=== PATIENT | male | born 1955 | race Caucasian/White ===

== ENCOUNTER → 2017-06-05 13:18 | Outpatient (CLI) | payer MEDICAID, SELFPAY ==
--- NOTE | 2017-06-05 13:36 | CT_ITS ---
EXAM: CT LUNG LOW DOSE WO CONTRAST COMPARISON: 05/28/2013 HISTORY: 62-year-old male with 88 pack-year smoking history asymptomatic for lung cancer ORDERING PHYSICIAN: Ruddy Lynn MD PATIENT AGE: 62 years TECHNIQUE: The exam was performed on a GE Light Speed [address] scanner using 2.96 mGy CTDI. A low dose helical CT CHEST was performed on a multi-detector scanner The LDCT was performed in a facility that meets the criteria for the screening program. Data regarding this exam was submitted to ACR which is an approved registry. The order for this exam indicates that it came as a result of a lung cancer screening counseling shard decision-making visit that included all the elements required of such a visit including smoking cessation. The radiologist interpreting this exam meets the [facility] criteria for the LDCT lung cancer screening program. The exam is reported using the Lung-RADS classification scale and reported to the ACR registry. NOTE: This study was performed for the specific purposes of lung cancer screening and is not an alternative to diagnostic chest CT. RADIATION DOSE: CTDI vol(CT dose Index-volume) = 2.96mG DLP (Dose Length Product) = 119.2 mGcm FINDINGS: There are severe centrilobular emphysematous changes with scattered areas of fibrosis. There are scattered stable calcified granulomas and a few stable subpleural nodules. There is a new somewhat irregular shaped 10 x 8 mm nodule in the posterior segment of the left upper lobe inferiorly not calcified. No effusions are evident. There is patchy density in the right middle lobe inferiorly may be due to an area of atelectasis or infiltrate. No other pertinent findings IMPRESSION: 1. Lung RADS Category: 4, suspicious. 10 x 8 mm somewhat ill-defined irregular nodule in the posterior segment left upper lobe inferiorly not readily apparent on the previous study. This is more prominent on the reformatted images. 2. Other findings: Severe centrilobular emphysema with pulmonary fibrosis and old granulomatous disease RECOMMENDATIONS: Regular CT chest without and with contrast
== END ==
PROVIDERS: Family Provider Family Medicine; PCP Family Medicine; Visit Provider Family Medicine
DX: Z12.2 Encounter for screening for malignant neoplasm of respiratory organs (principal); Z87.891 Personal history of nicotine dependence; Z72.0 Tobacco use

== ENCOUNTER → 2017-06-18 09:37 | Outpatient (CLI) | payer MEDICAID, SELFPAY ==
--- NOTE | 2017-06-18 09:41 | CT_ITS ---
CT chest wo/w con HISTORY: Emphysema, COPD, follow-up abnormal lung screening CT ITS.REASON: ABNORMAL CT LUNG SCREENING ORDERING PHYSICIAN: Js Lynn PATIENT AGE: 62 years TECHNIQUE: Axial images obtained without and with contrast. Sagittal and coronal reformatted images are also generated and reviewed. CONTRAST: 75ml Isovue 370 I.V. COMPARISON: 06/05/17 FINDINGS: No mediastinal or hilar mass or adenopathy. There are scattered small nodes in the mediastinum and right hilum with a right hilar lymph node measuring 1.9 x 1.5 cm. Normal heart size. No evidence pericardial effusion. No evidence of aortic aneurysm or dissection there is minimal ectasia of the proximal descending thoracic aorta at 3.4 cm. Moderate to severe edematous changes are present with bullous changes in the lung apices. Calcified granuloma is present in the right upper lobe and there are are postsurgical changes in the right apex. There are scattered subpleural nodular opacities and small fissural nodules which are unchanged. The previously noted 7 x 5 mm opacity in the left upper lobe posteriorly is once again noted but does appears somewhat less apparent on the post enhanced images measuring approximately 5 x 3 mm. Recommend 6 month follow-up to confirm short-term stability. No other significant anomalies are evident. Upper abdominal images are unremarkable. No acute bony findings. IMPRESSION: 1. Centrilobular emphysema with bullous changes and's scattered subpleural and fissural small nodular opacities which appear stable. 2. The new nodule within the left upper lobe is somewhat less apparent on today's images compared to the screening CT and could very well be due to an area of parenchymal fibrosis or postinflammatory nodule. Six-month CT follow-up is recommended. This can be performed without contrast but should be a regular chest CT and not a screening CT
== END ==
PROVIDERS: Family Provider Family Medicine; PCP Family Medicine; Visit Provider Psychiatry & Neurology Psychiatry
DX: R91.8 Other nonspecific abnormal finding of lung field (principal)
CPT/HCPCS: 71270; Q9967

== ENCOUNTER → 2017-12-09 12:25 | Outpatient (CLI) | payer MEDICAID, SELFPAY ==
--- NOTE | 2017-12-09 | XR_ITS ---
XR chest 2V HISTORY: ITS.REASON: BRONCHITIS ORDERING PHYSICIAN: Ruddy Lynn MD PATIENT AGE: 62 years COMPARISON: 08/18/2015 FINDINGS: There is been a prior median sternotomy with mitral valve replacement. Normal heart size. Surgical clips are present in the right apex. There is a granuloma in the right upper lobe. There is patchy density in the right mid and upper lungs on similar to the previous exam and may be due to an area of fibrosis. No evidence of pneumothorax. There is blunting of the right CP angle. Left lung is clear. There is hyperinflation with attenuation of the peripheral pulmonary vessels consistent with COPD. There has been prior cervical fusion inferiorly. IMPRESSION: COPD, postsurgical changes. No change with no acute finding
== END ==
PROVIDERS: PCP Family Medicine; Visit Provider Family Medicine
DX: J40 Bronchitis, not specified as acute or chronic (principal)
CPT/HCPCS: 71046

== ENCOUNTER → 2019-04-07 12:53 | Outpatient (CLI) | payer OTHER, SELFPAY ==
--- NOTE | 2019-04-07 12:55 | CT_ITS ---
PROCEDURE: CT LUNG SCREENING CLINICAL INDICATION: CURRENT TOBACCO USE Sixty pack-year smoking history, asymptomatic for lung cancer COMPARISON: CHESTWW CT chest wo/w con from 06/18/2017 TECHNIQUE: The exam was performed on a GE Light Speed [address] scanner using 2.90 mGy CTDI. A low dose helical CT CHEST was performed on a multi-detector scanner. All CT scans at the facility use one or more dose reduction, viz: automated exposure control, ma/kV adjustment per patient size (including targeted exams where dose is matched to indication, i.e. head), or iterative reconstruction technique. The LDCT was performed in a facility that meets the criteria for the screening program. Data regarding this exam was submitted to ACR which is an approved registry. The order for this exam indicates that it came as a result of a lung cancer screening counseling shard decision-making visit that included all the elements required of such a visit including smoking cessation. The radiologist interpreting this exam meets the CMS criteria for the LDCT lung cancer screening program. The exam is reported using the Lung-RADS classification scale and reported to the ACR registry. NOTE: This study was performed for the specific purposes of lung cancer screening and is not an alternative to diagnostic chest CT. RADIATION DOSE: CTDI vol(CT dose Index-volume) = 2.90mG DLP (Dose Length Product) = 109.94 mGcm FINDINGS: Panlobular emphysematous changes are present. Stable 5 mm nodular opacity right upper lobe medially image 52. Stable fissural nodule on the right at 4 mm. Scattered calcified granulomas. 4 mm subpleural opacity right lower lobe posteriorly unchanged. Scattered areas of scarring. No suspicious nodules evident. There are postsurgical changes in the right apex. OTHER FINDINGS: Prior median sternotomy. Prior mitral valve replacement IMPRESSION: Lung rads category 2 benign. Recommend 12 month LDCT follow-up. Other findings include centrilobular emphysema Dictated by: Bonifacio Alarcon MD 04/07/2019 18:10 Electronically signed by Bonifacio Alarcon MD in [place] 04/14/2019 10:39
== END ==
PROVIDERS: PCP Family Medicine; Visit Provider Family Medicine
DX: Z87.891 Personal history of nicotine dependence (principal); Z12.2 Encounter for screening for malignant neoplasm of respiratory organs

== ENCOUNTER → 2019-09-07 08:07 | Outpatient (CLI) | payer OTHER, SELFPAY ==
[2019-09-07 08:37] LABS: Basophils # 0.1 K/mm3 (0-0.2); Basophils % 0.8 % (0.1-2.0); Eosinophils # 0.2 K/mm3 (0.0-0.4); Eosinophils % 1.9 % (0.1-12.0); Hematocrit 45.8 % (42.0-52.0); Hemoglobin 14.5 g/dL (14.1-18.0); Lymphocytes # 1.6 K/mm3 (0.7-4.5); Lymphocytes % 19.1 % (10-50); Mean Corpuscular HGB Conc 31.8 g/dL (31.8-35.4); Mean Corpuscular Hemoglobin 29.1 pg (27.0-31.2); Mean Corpuscular Volume 91.7 fl (80-94); Monocytes # 0.7 K/mm3 (0.1-1.0); Monocytes % 8.2 % (1.7-9.3); Platelet Count 226 K/mm3 (142-424); Red Blood Count 4.99 M/mm3 (4.60-6.20); Red Cell Distribution Width 15.1 % (11.5-17.5); White Blood Count 8.5 K/mm3 (4.8-10.8)
[2019-09-07 10:21] LABS: Anion Gap 7.2 mEq/L (5-15); Blood Urea Nitrogen 20 mg/dl (9-20); Calcium 9.7 mg/dl (8.4-10.2); Carbon Dioxide 28 mmol/L (22.0-30.0); Chloride 105 mmol/L (98-107); Estimated Glomerular Filt Rate 86 ml/min (>60); GFR (African American) 103 ML/MIN (>60); Glucose 118 mg/dl (74-100); Potassium 4.2 mmoL/L (3.5-5.1); Sodium 136 mmol/L (136-145)
[2019-09-29 16:03] LABS: Covid-19 Nasal PCR Sendout Lex NOT DETECTED
== END ==
PROVIDERS: Visit Provider Surgery
DX: Z03.818 Encounter for observation for suspected exposure to other biological agents ruled out (principal); K40.90 Unilateral inguinal hernia, without obstruction or gangrene, not specified as recurrent
CPT/HCPCS: 36415; 80048; 85025; U0004

== ENCOUNTER 2019-09-09 06:12 | Day surgery (SDC) | payer OTHER, SELFPAY ==
--- NOTE | 2019-09-04 09:53 | SUR.PREOP ---
09/04/2019 @ 0954--PHONE CALL MADE TO PATIENT. PATIENT UNDERSTANDS THAT LAB WORK AND COVID TESTING NEEDS TO BE COMPLETED @ 0800 on 09/07/2019. PATIENT UNDERSTANDS IF LAB WORK AND COVID-19 TESTS ARE NOT COMPLETED BY 12PM ON THAT DATE, THE SURGERY SCHEDULED WILL BE CANCELLED AND RESCHEDULED FOR ANOTHER TIME.
[2019-09-08 10:44] VITALS: BMI 20.5
[2019-09-09] VITALS (15 sets, daily range): BP systolic 84–132; BP diastolic 54–75; PULSE 66–105; RESP 12–23; TEMP 36.1–43; O2SAT 93–99
--- NOTE | 2019-09-09 06:58 | P.PN_ITS ---
[facility] Anesthesia Checklist - Patient Identification Patient Identification: Arm Band, Verbal (Name & ) - Structural Data Admitted From: Home Planned Operative Procedure/s: bilat ing hernia Consent for Planned Operative Procedure(s) Verified: Yes Verified Documents: History and Physical - NPO Status Verified Time NPO: 00:00 - Additional verifications Patient : No Anesthesia Reactions: No Hx Blood Transfusions: No Blood Transfusion Reaction: No Cephalosporin Allergy: No Previous Colonoscopy: No - Cardiovascular Assessment Heart Sounds: S1 & S2 Pulse Strength: Baseline Pulse Rhythm: Regular Peripheral Edema: No - Airway Assessment C-Spine Mobility Assessed: Yes TMJ Mobility Assessed: Yes Dentition: Good Dentition - Neurological Assessment Level of Consciousness: Awake, Alert, Appropriate Hx Seizures: No Numbness or tingling in extremities: No - Anesthesia Plan Anesthesia Risk discussed: Yes Anesthesia Plan: Verified ASA Class: II Anesthesia Type: General [facility] History I have reviewed the patient's past medical history: Yes Medical History: Denies:: Cancer, Diabetes Mellitus Type 1, Diabetes Mellitus Type 2, Internal Pacemaker, MRSA *Have you ever received a pneumonia vaccine?: No *Have you received a flu vaccine this season?: Yes Anesthesia experience/problems:: none Other Surgeries: Yes: Cardiac Surgery, Colonoscopy. No: Pacemaker Amputation: No Fractures: No - *Social History Educational Level: Completed High School Smoking Status: Current every day smoker Tobacco Type: cigarettes # Packs/Day (cigarettes): 1 Alcohol Intake: current Alcohol Intake Frequency:: a few times a month Substance Use Type: denies use *Occupational Status:: employed Housing: house Household Members: spouse *Travel in the last 8 weeks: None Family Hx:: No significant family history
--- NOTE | 2019-09-09 09:29 | HMH.OPNOTE ---
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 He is under the care of Dr. Christian Lynn. Patient had undergone both right and left inguinal hernia repair approximately 25 years ago. For several years she has had evidence of hernia recurrence on the right side. This had been minimally symptomatic in the past and he had elected to refrain from surgery. However, the patient states that recently he has had significantly increasing discomfort. He describes it as a significant burning pain. Interestingly, it seems to be worse when the hernia is reduced. He does state that his symptoms seem to be worse when he is sitting up. He denies nausea or change in bowel habits. He describes the burning pain is significantly lifestyle limiting. When he was seen in the office he had evidence of bilateral recurrent hernias. Right side was tender but reducible. Options were discussed and plan was made for attempt at laparoscopic repair with concentration on the right side. Operative findings:: Patient had bilateral recurrent direct bilateral hernias with evidence of chronic incarceration particularly on the right side. Right side was larger. Operative note:: Patient was taken to the operating room. He was given preoperative intravenous antibiotics. In the operating room he was placed in a supine position. General anesthesia was induced via endotracheal tube. Robison catheter was placed. Lower abdomen and perineal area were prepped and draped in the standard surgical fashion. Subumbilical incision was made and dissection was carried down through to the anterior fascia which was incised to the right of the linea alba. Rectus muscles retracted laterally and preperitoneal space was entered. Dissecting balloon trocar was inserted. Preperitoneal space was dissected out. Dissecting balloon trocar was removed and replaced with the structural balloon trocar. CO2 pneumo preperitoneum was achieved to 15 mmHg. A couple of 5 mm trochars were inserted in the midline in the lower abdomen. Dissection was carried out on the right side. Initially Tres ligament and pubis were identified. There appeared to be tightly chronically incarcerated direct hernia. With some difficulty this was slowly dissected free and reduced. There was edema within the hernia. There is no evidence of any bowel or visceral contents. Dissection was quite prolonged. There was a small to moderate direct hernia defect. Inferior epigastric vessels were identified as were the cord structures. The cord structures were isolated and dissected free. Preperitoneal space was dissected out laterally to allow for placement of preperitoneal mesh. Next attention was turned to dissection on the left side. In a similar fashion landmarks were identified. Pubis and Shane's ligament were identified. There was herniated fatty tissues as a chronically incarcerated direct hernia. This was able to be dissected free and reduced. The inferior epigastric vessels and cord structures were identified and dissected free from surrounding structures. Preperitoneal space was dissected out laterally to allow for mesh placement. A large sized Bard 3D max mesh was inserted into the preperitoneal space. This was dedicated for the left side. Is oriented intracorporeally to cover the iliopectineal orifice with good overlap of the hernia defects. Next attention was turned to mesh placement on
--- NOTE | 2019-09-09 09:33 | HMH.ANESI ---
[facility] Anesthesia Record Part I Intake, IV Amount: 1,600 Estimated blood loss (mL): 0 Urine output (mL): 200 Blood Pressure: 132/75 SaO2: 96 Pulse Rate: 105 Respiratory Rate: 12 Temperature: 99.4 F Patient is:: Awake, Stable Stable to PACU at:: 09:30
[2019-09-09 10:35] LABS: Microscopic,Cath URINE MICROSCOPIC (MICROSCOPIC)
[2019-09-09 10:47] LABS: Appearance,Urine/Cath CLEAR (Clear); Bilirubin,Cath Negative (Negative); Blood, Urine/Cath 2+ (Negative); Color,Urine/Cath DK YELLOW (Yellow); Glucose,Urine/Cath (UA) Negative (Negative); Ketones,Urine/Cath Negative (Negative); Leukocyte Esterase,Cath Negative (Negative); Nitrate,Cath Negative (Negative); Protein,Urine/Cath Negative (Negative); Specific Gravity, Urine/Cath 1.025 (1.005-1.030); Urobilinogen,Cath 0.2 EU/dl (0.2)
[2019-09-09 10:50] LABS: RBC,Urine/Cath 20-50 # /hpf (0-3); Squamous Epithelial Ur./Cath Occasional #/hpf (0-5)
--- NOTE | 2019-09-09 18:17 | HMH.ANESII ---
[facility] Anesthesia Record Part II Discharge Time: 10:04 Destination: Surgical Day Care (OP Surgery) PACU nurse assessment reviewed?: Yes Patient Condition:: Good Anesthesia Complications:: None Swallowing reflex intact?: Yes Cyanosis?: No Blood Pressure: 93/54 Pulse Rate: 90 Temperature: 97.6 F Mental Status: Alert & Oriented Pain level:: 0 Nausea and/or vomitting:: None Intake, IV Amount: 0
== END 2019-09-09 10:55 | disposition home or self-care (01) ==
LOC: OR 06:13
PROVIDERS: PCP Family Medicine; Visit Provider Surgery
PROC: (CPT 49650; principal; 2019-09-09 07:30)
DX: K40.21 Bilateral inguinal hernia, without obstruction or gangrene, recurrent (principal)
CPT/HCPCS: 49651; 81001; 96374; J2405; J2710

== ENCOUNTER 2020-09-19 12:05 | Emergency (ER) | payer OTHER, SELFPAY ==
[2020-09-19 12:07] VITALS: BP 106/54; PULSE 60; RESP 16; TEMP 36.8; O2SAT 100; BMI 20.5
[2020-09-19 12:16] VITALS: BP 106/54; PULSE 80
--- NOTE | 2020-09-19 12:29 | XR_ITS ---
PROCEDURE: XR HAND LT MIN 3V CLINICAL INDICATION: laceration COMPARISON: CR HANDL3 HAND-LT-3 VIEWS from 05/11/2014 FINDINGS: No fracture or dislocation. No lytic or blastic change. There is normal mineralization. There are osteoarthritic changes at the 1st metacarpal-carpal joint with calcific debris laterally, 2nd and 3rd metacarpophalangeal joint. Soft tissue laceration noted along the mid and lateral aspect of the 1st metacarpal without obvious bony abnormality. IMPRESSION: Soft tissue laceration. No acute bony anomaly. Degenerative changes which have progressed since 05/11/2014 Dictated by: Bonifacio Alarcon MD 09/19/2020 12:59 Bonifacio Alarcon MD in [place] 09/19/2020 12:59
--- NOTE | 2020-09-19 12:50 | HMH.EDWNDL ---
ED Disposition Clinical Impression: Laceration of left hand without complication, excluding fingers Qualifiers: Encounter type: initial encounter Qualified Code(s): S61.412A - Laceration without foreign body of left hand, initial encounter Disposition: Home, Self-Care Condition on Discharge: Good Instructions: DI for Laceration Repair Referrals: Ruddy Lynn MD [Primary Care Provider] - - Critical Care Critical Care Time: No Attestation: On 09/19/20, the high probability of a clinically significant, sudden or life threatening deterioration of the following system(s) required my full and direct attention, intervention and personal management. The time I documented below is in addition to time spent performing reported procedures but includes the following listed in this critical care notation. Medical Decision Making - Medical Records Medical records reviewed: Yes: I reviewed the patient's medical records. - Teto Inquiry Pt receiving controlled substance: No Vital Signs: 09/19/20 12:07 09/19/20 12:16 Temperature 98.3 F Temperature Source Oral Pulse Rate 80 Pulse Rate [Right] 60 Respiratory Rate 16 Blood Pressure 106/54 L Blood Pressure [Right Arm] 106/54 L Blood Pressure Mean [Right Arm] 71 Blood Pressure Source [Right Arm] Automatic Cuff Blood Pressure Position [Right Arm] Sitting 02 Sat by Pulse Oximetry 100 Oxygen Delivery Method Room Air Orders (Tests/Meds): ED MEDICATIONS Discontinued Medications Generic Name Dose Route Start Last Admin Trade Name Freq PRN Reason Stop Dose Admin Ibuprofen 800 mg 09/19/20 12:29 09/19/20 12:41 Ibuprofen 400 Mg Tablet PO 09/19/20 12:30 Not Given ONCE ONE - Radiology Data #1 Image(s): Hand Image Reviewed: Yes I reviewed the patient's radiology results, Yes I reviewed the patient's radiology image, Yes I have reviewed radiologist's interpretation FINDINGS: No fracture or dislocation. No lytic or blastic change. There is normal mineralization. There are osteoarthritic changes at the 1st metacarpal-carpal joint with calcific debris laterally, 2nd and 3rd metacarpophalangeal joint. Soft tissue laceration noted along the mid and lateral aspect of the 1st metacarpal without obvious bony abnormality. IMPRESSION: Soft tissue laceration. No acute bony anomaly. Degenerative changes which have progressed since 05/11/2014 - Reevaluation(s) Time: 13:16 Reevaluation #1: On reevaluation, patient tolerated procedure well. Needs to follow-up with PCP as prescribed. Given wound care as suture removal precautions. Patient verbalized understanding. Medical Decision Narrative: Patient presenting with a laceration to the left hand. Neurovascularly intact. Motor function appears to be intact. Will require suture repair. Tetanus up-to-date. Wound/Laceration HPI - General Chief Complaint: Wound/Laceration Stated Complaint: AO cut back of Lt hand Time Seen by Provider: 09/19/20 12:15 Mode of Arrival: Ambulatory Limitations: No Limitations Description of Symptoms (Recalled from ER Triage Doc. by RN): pt cut th top of his left hand with a saw. Pt is still able to move fingers and has feeling in his hand - History of Present Illness HPI narrative: 65-year-old male presented to the emergency department for laceration to left hand. Patient states that he was using a reciprocating saw when he lost control and hit the back of his hand. There is a laceration to the dorsal aspect of the left hand. No active bleeding. Patient has good range of motion. Minimal pain. Did not sustain any other injuries. Tetanus up-to-date. - Related Data Home Medications Medication Instructions Recorded Confirmed aspirin 325 mg tablet 325 mg PO DAILY 09/01/19 09/19/20 metoprolol tartrate 25 mg tablet 25 mg PO DAILY 09/01/19 09/19/20 tamsulosin 0.4 mg capsule 0.4 mg PO DAILY 09/01/19 09/19/20 Apixaban [Eliquis 5mg tab]
[2020-09-19 13:19] VITALS: BP 110/74; PULSE 70; RESP 16; TEMP 36.8; O2SAT 98
--- NOTE | 2020-09-19 13:23 | PC.NURSE ---
applied bacitracin to hand wound. covered in gauge, wrapped in kerlix, and mir bandage. patient has cap refill less than 3 seconds with no numbness or tingling
== END 2020-09-19 13:22 | disposition home or self-care (01) ==
PROVIDERS: Emergency Provider Emergency Medicine; PCP Family Medicine
DX: S61.412A Laceration without foreign body of left hand, initial encounter (principal); W31.2XXA Contact with powered woodworking and forming machines, initial encounter; Y92.89 Other specified places as the place of occurrence of the external cause; F17.210 Nicotine dependence, cigarettes, uncomplicated
CPT/HCPCS: 12002; 73130; 99282

== ENCOUNTER → 2021-01-03 10:55 | Outpatient (CLI) | payer OTHER, SELFPAY | PROVIDERS: PCP Family Medicine; Visit Provider Family Medicine | DX: Z20.822 Contact with and (suspected) exposure to COVID-19 (principal) | CPT/HCPCS: U0003 ==

== ENCOUNTER → 2021-04-26 14:23 | Outpatient (CLI) | payer OTHER, SELFPAY ==
[2021-04-26 15:24] LABS: Influenza A, PCR Not Detected (NotDetected); Influenza B, PCR Not Detected (NotDetected)
[2021-04-26 15:30] LABS: Basophils # 0.1 K/mm3 (0-0.2); Basophils % 0.9 % (0.1-2.0); Eosinophils # 0.1 K/mm3 (0.0-0.4); Eosinophils % 1.3 % (0.1-12.0); Hematocrit 44.2 % (42.0-52.0); Hemoglobin 14.1 g/dL (14.1-18.0); Lymphocytes # 1.5 K/mm3 (0.7-4.5); Lymphocytes % 21.4 % (10-50); Mean Corpuscular HGB Conc 31.9 g/dL (31.8-35.4); Mean Corpuscular Hemoglobin 30.3 pg (27.0-31.2); Mean Platelet Volume 8.7 fl (7.4-10.4); Monocytes # 0.7 K/mm3 (0.1-1.0); Monocytes % 9.5 % (1.7-9.3); Neutrophils # 4.8 K/mm3 (1.8-7.8); Neutrophils % 66.9 % (37.0-80.0); Platelet Count 211 K/mm3 (142-424); Red Blood Count 4.66 M/mm3 (4.60-6.20); Red Cell Distribution Width 14.9 % (11.5-17.5); White Blood Count 7.2 K/mm3 (4.8-10.8)
[2021-04-26 16:19] LABS: Coronavirus 19, PCR Detected (NotDetected)
== END ==
PROVIDERS: PCP Family Medicine; Visit Provider Family Medicine
DX: U07.1 COVID-19 (principal)
CPT/HCPCS: 36415; 85025; C9803; U0003; U0005

== ENCOUNTER → 2021-04-28 07:33 | Outpatient (CLI) | payer OTHER, SELFPAY ==
[2021-04-28 09:04] VITALS: BP 108/60; PULSE 64; RESP 18; O2SAT 98
[2021-04-28 09:10] VITALS: BP 131/66; PULSE 61; RESP 18; O2SAT 100
[2021-04-28 09:37] VITALS: BP 125/68; PULSE 65; RESP 18; O2SAT 99
[2021-04-28 09:40] VITALS: BP 131/61; PULSE 68; RESP 18; O2SAT 98
[2021-04-28 09:55] VITALS: BP 120/72; PULSE 64; RESP 18; O2SAT 92
[2021-04-28 10:10] VITALS: BP 122/76; PULSE 64; RESP 18; O2SAT 99
== END ==
PROVIDERS: PCP Family Medicine; Visit Provider Family Medicine
DX: U07.1 COVID-19 (principal); Z23 Encounter for immunization
CPT/HCPCS: 96365

== ENCOUNTER → 2022-06-01 13:49 | Outpatient (CLI) | payer MEDICARE, OTHER, SELFPAY ==
--- NOTE | 2022-06-01 13:52 | CT_ITS ---
FINAL REPORT TECHNIQUE: Axial CT images of the chest were obtained without contrast. Low-dose protocol was utilized. This study was performed with techniques to keep radiation doses as low as reasonably achievable (ALARA). Individualized dose reduction techniques using automated exposure control or adjustment of mA and/or kV according to the patient's size were employed. CLINICAL HISTORY: TOBACCO ABUSE, 1 1/2 PKS PER DAY X 50 YRS COMPARISON: 04/07/2019 FINDINGS: CT CHEST WITHOUT, LOW DOSE SCREENING CT Di Vol: 2.90 mGy DLP: 116.72 mGy*cm There is no axillary, mediastinal, or hilar adenopathy. The heart size is normal. There is evidence of prior median sternotomy. There is no pleural or pericardial effusion. The lung windows show moderate emphysema. There is mild scarring. There are multiple calcified granulomas. There is a stable nodule at the minor fissure measuring 4 mm seen on image 58. There is a stable nodule at the right major fissure measuring 4 mm seen on image 57. There is a stable pleural base nodule in the right lower lobe measuring 5 mm seen on image 60. No new mass or nodule identified.. Limited images of the upper abdomen are unremarkable IMPRESSION: Stable nodules as above. LR Category 1: 12 month follow-up low-dose chest CT is recommended. Reviewed, Interpreted and Dictated by William Meeks III, MD Transcribed by Veronica Pitts Authenticated and [facility]
== END ==
PROVIDERS: PCP Family Medicine; Visit Provider Family Medicine
DX: Z87.891 Personal history of nicotine dependence (principal); Z12.2 Encounter for screening for malignant neoplasm of respiratory organs
CPT/HCPCS: 71271

== ENCOUNTER 2023-06-12 06:17 | Outpatient (CLI) | payer MEDICARE, SELFPAY ==
--- NOTE | 2023-06-12 06:22 | NM_ITS ---
APPROVED REPORT Exam: Nuclear Stress Test Indication: Tobacco use, CAD, CABG Patient Location: Outpatient Stress Tech: Katherine Redding [place] Tech:Mandy Manuel, ANTOINETTET, RT (R)(N) Ht: 6 ft 2 in Wt: 160 lbs HR: 71 bpm BP: 127/62 mmHg BSA: 1.98 m2 TID: 1.05 BMI: 20.5 History: Tobacco use, CAD, CABG Procedure: Patient received 0.4 mg of intravenous Lexiscan, resting heart rate 71 bpm, resting blood pressure 127/62 mmHg, with Lexiscan maximum heart rate achieved was 102 bpm which is % of the maximum predicted heart rate and blood pressure was 127/62 mmHg. With Lexiscan, patient denied any complaint of chest pain. Cardiac Stress and Resting SPECT Images: Cardiac Stress and Resting SPECT images were obtained using technetium 99m Myoview 30.8 mCi stress and 10.39 mCi at rest. Resting and stress imaging in supine and prone positions demonstrate a large sized, moderate, fixed perfusion defect in the inferior LV wall from the base and extending distally towards the inferoapical region. Gated imaging demonstrates mild reduction in global LV systolic function. There is moderate hypokinesis of the inferior LV wall. LVEF is calculated at 46%. Conclusion: Large sized, moderate, fixed perfusion defect in the inferior LV wall from the base and extending distally towards the inferoapical region. There is no evidence of reversible ischemia. Gated imaging demonstrates mild reduction in global LV systolic function. There is moderate hypokinesis of the inferior LV wall. LVEF is calculated at 46%. Electronically signed by : Radha Garcia MD 06/13/2023 11:08:42
--- NOTE | 2023-06-12 07:08 | CA_ITS ---
APPROVED REPORT EXAM: Comprehensive 2D, Doppler, and color-flow Echocardiogram Cover Maker: Destiney Hernandez RDCS Ht: 6 ft 2 in Wt: 163lbs BSA: 1.99 BP: 105/60 mmHg Indications: MVR TISSUE M-Mode Dimensions RVDd 2.34 cm (0.9-2.6) LA Diam 2.93 cm (1.9-4.0) LVDd 5.45 cm (3.5-5.7) LVDs 4.15 cm (3.5-5.7) IVSd 0.64 cm (0.6-1.1) PWd 0.74 cm (0.6-1.1) EF (Teich) 47.10% FS 23.90% EDV (Teich) 144.40 mL ESV (Teich) 76.40 mL LV Diastology E Decel Time 343 (160-240 msec) E/A Ratio 1.0 Mitral Valve MV E Max Ben. 136.0 (40-130 cm/s) MV A Velocity 134.0 (40-130 cm/s) E/A Ratio 1.01 MV PHT 101.0 ms Tricuspid Valve TR P. Velocity 201.00 cm/s RAP Estimate 10.00 mmHg RVSP 26.20 mmHg Left Ventricle The left ventricle is normal size. The left ventricular systolic function is low normal. There is normal left ventricular wall thickness. There is normal LV segmental wall motion. Diastolic function is indeterminate. LVEF is 50%. Right Ventricle The right ventricle is mildly dilated. The right ventricular systolic function is mildly reduced. Atria The left atrium size is normal. The right atrium size is normal. There is no Doppler evidence of interatrial shunt. Aortic Valve The aortic valve is mildly thickened. There is no aortic valvular stenosis. Trace aortic regurgitation. Mitral Valve s/p bioprosthetic MVR. The prosthesis is well-seated. The prosthesis leaflets are not well-visualized to evaluate leaflet mobility. Mean MV gradient 5 mmHg at HR 78 bpm. Trace central mitral regurgitation. Tricuspid Valve The tricuspid valve leaflets are thin and pliable. Trace tricuspid regurgitation. RVSP is 15-20 mmHg. Pulmonic Valve The pulmonary valve is normal in structure. Mild pulmonic regurgitation. Great Vessels The aortic root is mildly dilated, measuring 4.1 cm in diameter. The ascending aorta is not well-visualized. IVC is normal in size and collapses >50% with inspiration. Pericardium There is no pericardial effusion. Other Information Study Quality: Fair Conclusion Low normal LV systolic function (LVEF 50%). Mild RV dilation with mildly reduced RV function. s/p MVR. Prosthesis is well-seated. The prosthesis leaflets are not well-visualized to evaluate leaflet mobility. Trace central MR. Mean MV gradient 5 mmHg (HR 78 bpm). The aortic root is mildly dilated, measuring 4.1 cm in diameter. Mild PI. Electronically signed by : Radha Garcia MD 06/13/2023 13:12:41
[2023-06-12] MEDS: ISOTOPE MYOVIEW (PER STUDY) 1 DOSE IV (08:40)
[2023-06-12] MEDS: SODIUM CHLORIDE 0.9% 10ML SYR (RAD ONLY) 10 ML IV ×2 (08:40)
[2023-06-12] MEDS: REGADENOSON 0.4MG/5ML SYRINGE 0.400000000000000022 MG IV (08:40)
--- NOTE | 2023-06-12 09:26 | CA_ITS ---
APPROVED REPORT Exam: Pharmacologic Technologist: Katherine Redding Ht: 6 ft 2 in Wt: 163 lbs BSA: 1.99 m2 HR: 69 bpm BP: 127/62 mmHg Indications: Fatigue Medical History Medications: Aspirin,,,,, Metoprolol,,,,, TAMSULOSIN,,,,, Finasteride,,,,, Apixaban,,,,, MethylpredNISOLONE,,,,, Stress Test Details Test: LEXISCAN HR Resting HR: 71 bpm Max Heart Rate (APMHR): 154 bpm Max HR Achieved: 102 bpm Target HR (85% APMHR): 131 bpm % of APMHR: 66 Recovery HR: 87 bpm BP Resting BP: 127.0/62.0 mmHg Max BP: 127.0/62.0 mmHg Recovery BP: 114.0/65.0 mmHg ECG Resting ECG: Normal sinus rhythm, PVC Stress ECG: No significant ST changes Arrhythmia: PVCs Clinical Exercise duration: 04:00 min Highest Stage Achieved: Exercise capacity: 1.0 METs Stress ECG Conclusion Symptoms: Shortness of air, mild head discomfort, No chest pain. Arrhythmias/Ectopy: Occasional PVCs ST-T Changes: No significant ST changes. Conclusion: Unremarkable Lexiscan stress. Myoview images reported separately. Test Summary REST . . . . . . . Resting REST 04:03 . . 71 . 127/ 62 . . Stage 1 . . . . . . . Myoview Injected Stage 1 01:00 . . 79 . . . . Stage 2 01:00 . . 102 . 110/ 63 . . Stage 3 01:00 . . 89 . 117/ 69 . . Stage 4 01:00 . . 93 . 115/ 65 . Stop exercise at 04:00 RECOVERY 01:00 . . 81 . . . . RECOVERY 02:00 . . 82 . 120/ 58 . . RECOVERY 03:00 . . 86 . 114/ 65 . . RECOVERY 03:30 . . 80 . 114/ 65 . . Electronically signed by : Radha Garcia MD 06/13/2023 11:06:56
== END 2023-06-12 23:59 ==
LOC: RAD 06:18
PROVIDERS: PCP Family Medicine; Visit Provider Nurse Practitioner
DX: F17.200 Nicotine dependence, unspecified, uncomplicated (principal); I25.10 Atherosclerotic heart disease of native coronary artery without angina pectoris; R53.83 Other fatigue; Z95.2 Presence of prosthetic heart valve
CPT/HCPCS: 78452; 93017; 93018; 93306; A9502; J2785

== ENCOUNTER 2024-01-27 11:21 | Outpatient (CLI) | payer MEDICARE, SELFPAY ==
--- NOTE | 2024-01-27 11:29 | XR_ITS ---
FINAL REPORT TECHNIQUE: Chest PA & Lateral CLINICAL HISTORY: BRONCHITIS COMPARISON: None FINDINGS: 2 views of the chest were performed. There is evidence of a prior midline sternotomy. The heart size is normal. The mediastinum is within normal limits. There is no acute cardiopulmonary process. There are no pleural effusions. There is no pneumothorax. The bony thorax appears intact. IMPRESSION: No acute cardiopulmonary process. Reviewed, Interpreted and Dictated by Yang Tamez MD Transcribed by Susy Lazaro Authenticated and [facility]
== END 2024-01-27 23:59 | disposition home or self-care (01) ==
LOC: RAD 11:25
PROVIDERS: PCP Family Medicine; Visit Provider Family Medicine
DX: J40 Bronchitis, not specified as acute or chronic (principal)
CPT/HCPCS: 71046

== ENCOUNTER 2024-03-27 14:01 | Outpatient (CLI) | payer MEDICARE, SELFPAY ==
--- NOTE | 2024-03-27 14:04 | XR_ITS ---
FINAL REPORT CLINICAL HISTORY: BRONCHITIS COMPARISON: 01/27/2024 FINDINGS: PA and lateral views of the chest are obtained. The patient is again noted to be status post median sternotomy. The cardiac and mediastinal silhouettes are within normal limits. The lungs are clear. There is no pleural effusion, pneumothorax, or acute osseous abnormality. There is underlying emphysema. IMPRESSION: No acute abnormality. Reviewed, Interpreted and Dictated by Madalyn Goodman MD Transcribed by Kita Arreola Authenticated and [facility]
== END 2024-03-27 23:59 | disposition home or self-care (01) ==
LOC: RAD 14:02
PROVIDERS: PCP Family Medicine; Visit Provider Family Medicine
DX: J40 Bronchitis, not specified as acute or chronic (principal)
CPT/HCPCS: 71046

== ENCOUNTER 2024-11-02 09:21 | Outpatient (CLI) | payer MEDICARE, SELFPAY ==
--- OUTSIDE RECORDS SUMMARY | 2024-11-02 09:27 | XMS_ITS | Clinical Summary ---
Author Organization [facility] Address [address] [place] [address] Care Team Providers Care Sound Installation Worker Name Role Phone Morgan Lynn MD Primary Care Provider [phone] Allergies No known active allergies Social History Tobacco Use Types Packs/Day Years Used Date Smoking Tobacco: Never Assessed Sex and Gender Information Value Date Recorded Sex Assigned at Not on file Legal Sex Male 7:48 PM EDT Gender Identity Not on file Sexual Orientation Not on file Last Filed Vital Signs Vital Sign Reading Time Taken Comments Blood Pressure 106/63 05/19/2024 9:45 PM EST Pulse 116 05/19/2024 9:45 PM EST Temperature 36.6 C (97.8 F) 05/19/2024 9:45 PM EST Respiratory Rate 18 05/19/2024 9:45 PM EST Oxygen Saturation 97% 05/19/2024 9:45 PM EST Inhaled Oxygen Concentration - - Weight 74.8 kg (165 lb) 05/19/2024 9:45 PM EST Height - - Body Mass Index - - Plan of Treatment Not on file Insurance [employer] Care Teams Sound Installation Worker Relationship Specialty Start Date End Date Morgan Lynn MD [address] [place] [address] PCP - General 09/09/20
[2024-11-02 10:05] LABS: Hematocrit 39.4 % (42.0-52.0); Hemoglobin 12.4 g/dL (14.1-18.0); Immature Granulocytes % 0.3 %; Mean Corpuscular HGB Conc 31.5 g/dL (31.8-35.4); Mean Corpuscular Hemoglobin 25.4 pg (27.0-31.2); Mean Corpuscular Volume 80.7 fl (80-94); Nucleated Red Blood Cells % 0 %; Platelet Count 254 K/mm3 (142-424); Red Blood Count 4.88 M/mm3 (4.60-6.20); Red Cell Distribution Width-SD 52.4 fL; White Blood Count 14.6 K/mm3 (4.8-10.8)
[2024-11-02 10:36] LABS: Alanine Aminotransferase 17 U/L (12-78); Albumin Level 4.2 g/dl (3.5-5.0); Alkaline Phosphatase 91 U/L (38-126); Anion Gap 13.5 mEq/L (5-15); Aspartate Amino Transferase 27 U/L (17-59); Bilirubin,Direct 0.2 mg/dl (0.0-0.4); Bilirubin,Indirect 0.2 mg/dL (0.0-0.9); Bilirubin,Total 0.4 mg/dl (0.2-1.3); Bilirubin,Unconjugated 0.2 mg/dL (0.0-1.1); Blood Urea Nitrogen 12 mg/dl (9-20); Calcium 9.4 mg/dl (8.4-10.2); Carbon Dioxide 29 mmol/L (22.0-30.0); Chloride 100 mmol/L (98-107); Cholesterol 186 mg/dl (140-200); Creatinine,Serum 0.80 mg/dl (0.66-1.25); Estimated Glomerular Filt Rate 96 ml/min (>60); GFR (African American) 117 ML/MIN (>60); Glucose 99 mg/dl (74-100); HDL Cholesterol 56 mg/dl (40-60); Magnesium 2.2 mg/dl (1.6-2.3); Potassium 4.5 mmoL/L (3.5-5.1); Sodium 138 mmol/L (136-145); Total Protein,Serum 6.7 g/dl (6.3-8.2); Triglycerides 73 mg/dl (30-150)
[2024-11-02 10:49] LABS: Free T4 (Free Thyroxine) 1.05 ng/dl (0.78-2.19)
[2024-11-02 11:06] LABS: Thyroid Stimulating Hormone 1.14 uIU/mL (0.465-4.68)
== END 2024-11-02 23:59 | disposition home or self-care (01) ==
LOC: LAB 09:22
PROVIDERS: PCP Family Medicine; Visit Provider Nurse Practitioner
DX: R53.83 Other fatigue (principal)
CPT/HCPCS: 36415; 80048; 80061; 80076; 83735; 84439; 84443; 85025

== ENCOUNTER 2024-12-09 07:19 | Outpatient (CLI) | payer MEDICARE, SELFPAY ==
--- OUTSIDE RECORDS SUMMARY | 2024-11-13 05:45 | XMS_ITS ---
Author Organization [facility] Address [address] [facility] [address] [place] [id number] Care Team Providers Care Denture Finisher Name Role Phone Kofi Lynn Primary Care Provider Allergies No Known Allergies Results Component Value Reference Range Notes Glycohemoglobin A1c (in hous e) Reviewed date:11/20/2024 12:24:28 PM Interpretation:5.6 Performing Lab: Notes/Report: 5.6 glycohemoglobin 5.6 5 - 6.5 % P-Lipid Panel Reviewed date:11/20/2024 12:24:28 PM Interpretation:chol 204, non-hdl 150, ldl 132 Performing Lab: Notes/Report: Test performed by [facility], [address] , [address], [place] [address] Leonides Cordova MD, Carpenter Supervisor CLIA: [id number] Cholesterol 204 <200 mg/dL Triglycerides 92 <150 mg/dL HDL Cholesterol 54 >39 mg/dL Cholesterol / HDL Ratio 3.78 0.00-4.99 Ratio Non-HDL Cholesterol 150 <130 mg/dL LDL Cholesterol (Calculation) 132 <130 mg/dL LDL Cholesterol Levels* Less than 100 mg/dL Optimal 100 to 129 mg/dL Near Optimal/ Above Optimal 130 to 159 mg/dL Borderline High 160 to 189 mg/dL High 190 mg/dL and above Very High * Categories as recommended by the 2004 ATPIII guidelines LDL/HDL Ratio 2.4 <3.3 Ratio LDL Cholesterol Patient History Test Date: 11/13/2024 LDL Results: 132 Units: mg/dL % Change: - REASON FOR VISIT 4 Month Follow Up, Needs low dose chest CT, AAA screening, & Prevnar Medications Medication SIG (Take, Route, Frequency, Duration) Notes Start Date End Date Status Eliquis 5 mg TAKE ONE TABLET BY Wally MUSA TWICE DAILY DIRECTED; Duration: 30 days Active Aspirin 81 MG 1 tab(s) orally once a day Active Flomax 0.4 MG 1 cap(s) orally once a day; Duration: 90 days Active Finasteride 5 MG 1 tablet Orally Once a day; Duration: 90 days 10/13/2024 Active Metoprolol Succinate 25 MG 1 capsule Ora lly Once a day Active Albuterol Sulfate HFA 108 (90 Base) MCG/ACT 2 puff as needed Inhalation qid; Duration: 14 days 01/21/2024 Active Trelegy Ellipta 100-62.5-25 MCG/ACT 1 puff Inhalation Once a day 07/17/2024 Active Vital Signs Blood pressure systolic 102 mm Hg 11/14/19 25 Blood pressure diastolic 70 mm Hg 025 Heart Rate 76 /min 11/13/2024 Height 74 in 11/13/2024 Weight 157.6 lbs 11/13/2024 BMI 20.23 kg/m2 11/13/2024 Encounters Encounter Location Date Provider Diagnosis [facility] [address] [place] [id number] 11/13/2024 Kofi Lynn Centrilobular emphys aure J43.2 ; Tobacco abuse Z72.0 ; H/O mitral valve replacement Z95.2 ; History of lobectomy of lung Z90.2 ; Hyperglycemia R73.9 ; Lipid screening Z13.220 and BMI 20.0-20.9, adult Z68.20 Assessments Encounter Date Diagnosis (ICD Code) Assessment Notes Treatment Notes Treatment Clinical Notes Section Notes 11/13/2024 Centrilobular emphysema (ICD-10 - J43.2) 11/13/2024 Tobacco abuse (ICD-10 - Z72.0) 11/13/2024 H/O mitral valve replacement (ICD-10 - Z95.2) 11/13/2024 History of lobectomy of lung (ICD-10 - Z90.2) 11/13/2024 Hyperglycemia (ICD-10 - R73.9) 11/13/2024 Lipid screening (ICD-10 - Z13.220) 11/13/2024 BMI 20.0-20.9, adult (ICD-10 - Z68.20) Plan Of Treatment Next Appt Details Follow Up: 6 Months, Reason: Provider Name:Kofi Stuart er, 05/14/2025 09:45:00 AM, [address] [facility], [address], [place], [place], [id number], Progress Notes * MARIA ALEJANDRA THOMASDOB:1955 (69 yo M)Acc No.[id number]:11/13/2024 Progress Notes Patient: MARIA ALEJANDRA ARANGO Provider: Kofi Lynn M.D. :1955 A ge:69 Y S ex:Male Date:11/13/2024 Address:[address] [place] [address] [id number] Subjective: * Chief Complaints: * 1 . 4 Month Follow Up. 2. Needs low dose chest CT, AAA screening, & Prevnar. * HPI: C ardiology: The pt is here for a check up. Pt states he is doing good and denies any new concerns. Pt states he is fasting except for coffee with cream and sugar. See cardiology note of 11/02/24. Echo from May showed mildly dialated aortic root. CTA will be performed to further evaluate.? NOTE SWITCH TO METOPROLOL SUCCINATE. Denies : Chest Pain. D enies : Short of Breath. D enies : Dizziness. D enies : Palpitations. C onstitutional: Headed to [place] next week for fishing. Low energy level. * ROS: D ERMATOLOGY: no R cosme. n o H brandi. G ASTROENTEROLOGY: no N ausea. n o V omiting. n o D iarrhea.? U ROLOGY: no D ifficulty urinating. n o B lood in urine. * Medical History: A nxiety, Mitral valve prolapse, MRI 03/2017 WNL, 60 pack year smoking history as of 2018, BPH, COVID 19 Vaccine booster, Moderna, Dec 2020. * Surgical History: h ernia repair x 2 , spontaneous pneumothorax x 2, partial right lung resection , mitral valve replacement (Medtronic Mosaic tissue valve) 07/08/2013. * Hospitalization/Major Diagno stic Procedure: Claude Nava - see above . * Family History: F ather: 51 yrs, suicide. M other: alive 73 yrs. 2 brother(s) , 1 sister(s) . 1 son(s) , 1 daughter(s) . . * Social History: C URRENT TOBACCO USE S moking Status: Patient does smoke, packs per day: 2, number of cigarettes per day: 30, Since age of: 17, Smoking preference: cigarettes. C affeine: yes, frequency:. Home smoke detector use: yes. Marital Status: . Past smoking status: yes, plans to quit using Chantix. Recreational drug use: no. Alcohol: Type: , Frequency: ,Years: , Determination:. * Medications: T aking Metoprolol Succinate 25 MG Capsule ER 24 Hour Sprinkle 1 capsule Orally Once a day , Taking Aspirin 81 MG Tablet Delayed Release 1 tab(s) orally once a day , Taking Eliquis 5 mg Tablet TAKE ONE TABLET BY MOUTH TWICE DAILY DIRECTED , Taking Flomax 0.4 MG Capsule 1 cap(s) orally once a day , Taking Albuterol Sulfate HFA 108 (90 Base) MCG/ACT Aerosol Solution 2 puff as needed Inhalation qid , Taking Trelegy Ellipta 100-62.5-25 MCG/ACT Aerosol Powder Breath Activated 1 puff Inhalation Once a day , Taking Finasteride 5 MG Tablet 1 tablet Orally Once a day , Medication List reviewed and reconciled with the patient * Allergies: N .K.D.A. Objective: * Vitals: W t: 157.6, Temp: 97.9, BP: 102/70, HR: 76, O2 Sat: 99% on RA, Nurse: CYNTHIA, Ht: 74, BMI:20.23. * Examination: G eneral Examination: General Appearance: N AD. H EENT: u nremarkable.?Oral cavity: n o lesions, mucosa moist and WNL, no erythema. N kate: s upple, no lymphadenopathy. C hest: n ormal shape and expansion. H eart: R SR , no ectopics. L ungs: c lear to auscultation , no wheezes or rales. N eurologic Exam: I ntact, gait normal. S kin: n ormal, no rash. P eripheral pulses: n ormal (2+) bilaterally. E xtremities: n o leg edema. Assessment: * Assessment: 1. C entrilobular emphysema - J43.2 (Primary) 2 . T obacco abuse - Z72.0? 3. H /O mitral valve replacement - Z95.2 4 . H istory of lobectomy of lung - Z90.2 S pecify :right 5 . H yperglycemia - R73.9 6 . L ipid screening - Z13.220 7. B IL 20.0-20.9, adult - Z68.20 Plan: * Treatment: Value Reference Range g lycohemoglobin 5.6 5 - 6.5 % * Roseanne Chavez 11/13/2024 10 :47:40 AM EDT > Lavonne Sy 11/20/2024 12:24:22 PM EDT > See phone encounter 2.?Lipid screening?LAB: P-Lipid Panel (Collection Date & Time - 11/13/2024 10:46 AM)?chol 204, non-hdl 150, ldl 132* Value Reference Range C holesterol / HDL Ratio 3.78 0.00-4.99 - Ratio * C holesterol 204 H <200 - mg/dL * H DL Cholesterol 54 >39 - mg/dL * L DL Cholesterol (Calculation) 132 H <130 - mg/d L * L DL/HDL Ratio 2.4 <3.3 - Ratio * N on-HDL Cholesterol 150 H <130 - mg/dL * T riglycerides 92 <150 - mg/dL * Lavonne Sy Ann 11/21/19 12:24:22 PM EDT > See phone encounter * Procedure Codes: G 2211 Complex e/[place], [address] GLYCATED HEMOGLOBIN TEST, Modifiers: QW , 3044F HG A1C LEVEL LT 7.0%, G8420 BMI<30 AND >=22 CALC & DOCU, G8783 BP SCR PRFRM RCMDD DEFIND SCR INTVL, G8752 MOST RECENT SYSTOLIC BP < 140MM HG, G8754 MOST RECENT DIASTOLIC BP < 90MM HG * Follow Up: 6 Months * Images: Billing Information: * Visit Code: 82952 Office Visit, Est Pt., Level 4. * Procedure Codes: G2211 Complex e/[place]. [address] GLYCATED HEMOGLOBIN TEST. Modifiers: QW 3044F HG A1C LEVEL LT 7.0%. G8420 BMI<30 AND >=22 CALC & DOCU. G8783 BP SCR PRFRM RCMDD DEFIND SCR INTVL. G8752 MOST RECENT SYSTOLIC BP < 140MM HG. G8754 MOST RECENT DIASTOLIC BP < 90MM HG. * Electronic signature of Kofi Lynn MD on 12/09/2024 at 07:21 AM EDT Sign off status: Pending * Provider: Kofi Lynn M.D. Date: 0 11/13/2024 Generated for Alia au/Mariela/eTerniesmitting on: 0 12/09/2024 07:21 AM EDT History and Physical Notes * HPI (History of Present Illness) Category Sub-Category Detail Notes Category Not es Cardiology Short of Breath Chest Pain Palpitations Dizziness Constitutional Headed to [place] next week for fishing. Low energy level. Examination Category Sub-Category Detail Notes Category Not es General Examination HEENT: unremarkable Heart: RSR , no ectopics Lungs: clear to auscultatio n , no wheezes or rales Extremities: no leg edema General Appearance: NAD Skin: normal, no rash Neurologic Exam: Intact, gait normal Neck: supple, no lymphaden opathy Oral cavity: no lesions, mucosa m oist and WNL, no erythema Peripheral pulses: normal (2+) bilatera lly Chest: normal shape and exp ansion
--- OUTSIDE RECORDS SUMMARY | 2024-11-24 04:58 | XMS_ITS ---
Author Organization [facility] Address [address] [facility] [address] [place] [id number] Care Team Providers Care Proposal Writer Name Role Phone Kofi Lynn Primary Care Provider REASON FOR VISIT due col, LDCT Encounters Encounter Location Date Provider Diagnosis [place] [address] [place] [id number] 11/24/2024 Kofi Lynn Tobacco abuse Z72.0 ; History of lobectomy of lung Z90.2 and Encounter for screening for malignant neoplasm of respiratory organs Z12.2 Assessments Encounter Date Diagnosis (ICD Code) Assessment Notes Treatment Notes Treatment Clinical Notes Section Notes 11/24/2024 Tobacco abuse (ICD-10 - Z72.0) 11/24/2024 History of lobectomy of lung (ICD-10 - Z90.2) 11/24/2024 Encounter for screening for malignant neoplasm of respiratory organs (ICD-10 - Z12.2) Plan Of Treatment Pending Test Test Name Order Date CT Scan : Chest, low dose 11/24/2024 Next Appt Details Provider Name:Kofi Stuart er, 05/14/2025 09:45:00 AM, [address], [address], [place], [id number], Progress Notes * MARIA ALEJANDRA THOMASDOB:1955 (69 yo M)Acc No.[id number]:11/24/2024 Patient: MARIA ALEJANDRA ARANGO :1955 A ge:69 Y S ex:Male Address:[address] [place] [address] Subjective: * Chief Complaints: * d ue col, LDCT * Medical History: * Surgical History: * Hospitalization/Major Diagno stic Procedure: * Medications: Objective: * Vitals: * Physical Examination: Assessment: * Assessment: 1. T obacco abuse - Z72.0 (Primary) 2 . H istory of lobectomy of lung - Z90.2 S pecify :right 3 . E ncounter for screening for malignant neoplasm of respiratory organs - Z12.2 Plan: * Treatment: 2.?History of lobectomy of lung?Imaging: CT Scan : Chest, low dose* Andree Mayberry 12/02/2024 03:26 :39 PM EDT > sent to [facility] for referral to [facility] 3.?Encounter for screening for malignant neoplasm of respiratory organs?Imaging: CT Scan : Chest, low dose* Andree Mayberry 12/02/2024 03:26 :39 PM EDT > sent to [facility] for referral to [facility] * Procedure Codes: * true * Date: Generated for Alia au/Mariela/eTerniesmitting on: 0 12/09/2024 07:21 AM EDT
--- OUTSIDE RECORDS SUMMARY | 2024-12-02 04:15 | XMS_ITS ---
Author Organization [facility] Address [address] [facility] [address] [place] [id number] Care Team Providers Care Typewriter Ribbon Winder Name Role Phone Kofi Lynn Primary Care Provider [phone] Results Component Value Reference Range Notes P-Lipid Panel Reviewed date:12/03/2024 09:43:22 AM Interpretation:chol 206, non-hdl 153, ldl 131 Performing Lab: Notes/Report: FASTING Test performed by [facility] [address] [place] [address] , [address], [place] [address] Leonides Cordova MD, Power Crane Operator CLIA: [id number] Cholesterol 206 <200 mg/dL Triglycerides 111 <150 mg/dL HDL Cholesterol 53 >39 mg/dL Cholesterol / HDL Ratio 3.89 0.00-4.99 Ratio Non-HDL Cholesterol 153 <130 mg/dL LDL Cholesterol (Calculation) 131 <130 mg/dL LDL Cholesterol Levels* Less than 100 mg/dL Optimal 100 to 129 mg/dL Near Optimal/ Above Optimal 130 to 159 mg/dL Borderline High 160 to 189 mg/dL High 190 mg/dL and above Very High * Categories as recommended by the 2004 ATPIII guidelines LDL/HDL Ratio 2.5 <3.3 Ratio LDL Cholesterol Patient History Test Date: 11/13/2024 LDL Results: 132 Units: mg/dL % Change: - Test Date: 12/02/2024 LDL Results: 131 Units: mg/dL % Change: 0% REASON FOR VISIT blood work Medications Medication SIG (Take, Route, Frequency, Duration) Notes Start Date End Date Status Finasteride 5 MG 1 tablet Orally Once a day; Duration: 90 days 10/13/2024 Active Trelegy Ellipta 100-62.5-25 MCG/ACT 1 puff Inhalation Once a day 07/17/2024 Active Albuterol Sulfate HFA 108 (90 Base) MCG/ACT 2 puff as needed Inhalation qid; Duration: 14 days 01/21/2024 Active Aspirin 81 MG 1 tab(s) orally once a day Active Metoprolol Succinate 25 MG 1 capsule Ora lly Once a day Active Flomax 0.4 MG 1 cap(s) orally once a day; Duration: 90 days Active Eliquis 5 mg TAKE ONE TABLET BY M OUTH TWICE DAILY DIRECTED; Duration: 30 days Active Encounters Encounter Location Date Provider Diagnosis [facility] [address] [place], [place] [id number] 12/02/2024 Kofi Lynn Hyperlipidemia E78.5 Assessments Encounter Date Diagnosis (ICD Code) Assessment Notes Treatment Notes Treatment Clinical Notes Section Notes 12/02/2024 Hyperlipidemia (ICD-10 - E78.5) Plan Of Treatment Next Appt Details Provider Name:Kofi Huerta Sade er, 05/14/2025 09:45:00 AM, [address], [address], [place], [place], [id number], Progress Notes * MARIA ALEJANDRA THOMASDOB:1955 (69 yo M)Acc No.[id number]:12/02/2024 Patient: MARIA ALEJANDRA ARANGO Provider: Kofi Lynn M.D. :1955 A ge:69 Y S ex:Male Date:12/02/2024 Address:[address] [place] [address] [id number] Subjective: * Chief Complaints: * 1 . Blood work. * Medical History: * Medications: T aking Metoprolol Succinate 25 [...] List reviewed and reconciled with the patient Objective: * Vitals: Assessment: * Assessment: 1. H yperlipidemia - E78.5 (Primary) Plan: * Treatment: Value Reference Range C holesterol / HDL Ratio 3.89 0.00-4.99 - Ratio * C holesterol 206 H <200 - mg/dL * H DL Cholesterol 53 >39 - mg/dL * L DL Cholesterol (Calculation) 131 H <130 - mg/d L * L DL/HDL Ratio 2.5 <3.3 - Ratio * N on-HDL Cholesterol 153 H <130 - mg/dL * T riglycerides 111 <150 - mg/dL * Annetta Collier 12/03/2024 09:43 :19 AM EDT > See phone encounter * Images: Billing Information: * Visit Code: * Procedure Codes: * Electronic signature of Kofi Lynn MD on 12/09/2024 at 07:22 AM EDT Sign off status: Pending * Provider: Kofi Lynn M.D. Date: 12/02/2024 Generated for Alia au/Mariela/Zaki on: 12/09/2024 07:22 AM EDT
--- OUTSIDE RECORDS SUMMARY | 2024-12-09 07:21 | XMS_ITS ---
Author Organization Unknown Results OrderDate OrderTestName ResultName ResultDate Value Units Range AbnormalFlag ResultStatus ObservationNotes TestCode ResultCode DateRecorded AccessionNumber DiagnosticSectionCode DiagnosticSectionName Sequence Interpretation Cust om 01/21/2024 00:00:00 Covid test (in house) Result: [id number]:00:00 neg Reviewed Eneida Vaughn 01/21/2024 11:28:58 AM > , Provider reviewed results while patient in office.Francia Kumar 01/21/2024 1:30:00 PM > Covid test (in house) 01/21/2024 00:00: 00:00:00CBC Fingerstick (in house)[facility] 4461-12-02Z84:00:22113115 - [place] 01/21/2024 11:30:36 AM > , Provider reviewed results while patient in office.Francia Kumar 01/21/2024 1:30:14 PM > Coding CBC Fingerstick (in house) 01/21/2024 00:00: 00:00:00CBC Fingerstick (in house)[facility] 6265-23-23M60:00:0032.531 - 38[place]ieweGenoWood [place] 01/21/2024 11:30:36 AM > , Provider reviewed results while patient in office.Francia Kumar 01/21/2024 1:30:14 PM > Coding CBC Fingerstick (in house) 01/21/2024 00:00: 00:00:00CBC Fingerstick (in house)[facility] [place] 4261-00-40Q30:00:0027.925 - 35[place] 01/21/2024 11:30:36 AM > , Provider reviewed results while patient in office.Francia Kumar 01/21/2024 1:30:14 PM > Coding CBC Fingerstick (in house) 01/21/2024 00:00:00001/21/2024 00:00:00CBC Fingerstick (in house)mcv 8445-23-32S89:00:0086.075 - 100[facility] 01/21/2024 11:30:36 AM > , Provider reviewed results while patient in office.Francia Kumar 01/21/2024 1:30:14 PM > Coding CBC Fingerstick (in house) 01/21/2024 00:00: 00:00:00CBC Fingerstick (in house)[facility] 3854-52-18B82:00:0039.435 - 55[facility]aredMer[facility] 01/21/2024 11:30:36 AM > , Provider reviewed results while patient in office.Francia Kumar 01/21/2024 1:30:14 PM > Coding CBC Fingerstick (in house) 01/21/2024 00:00: 00:00:00CBC Fingerstick (in house)[facility] 2614-51-89F32:00:0012.811.5 - 16.5RejaredMer[facility] 01/21/2024 11:30:36 AM > , Provider reviewed results while patient in office.Francia Kumar 01/21/2024 1:30:14 PM > Coding CBC Fingerstick (in house) 01/21/2024 00:00: 00:00:00CBC Fingerstick (in house)[facility] 4576-75-43W76:00:004.583.5 - 5.5Rev[facility]we[facility] 01/21/2024 11:30:36 AM > , Provider reviewed results while patient in office.Francia Kumar 01/21/2024 1:30:14 PM > Coding CBC Fingerstick (in house) 01/21/2024 00:00: 00:00:00CBC Fingerstick (in house)[facility] 1506-78-48K73:00:0079.635 - 80Review[facility]HalidaMer[facility] 01/21/2024 11:30:36 AM > , Provider reviewed results while patient in office.Francia Kumar 01/21/2024 1:30:14 PM > Coding CBC Fingerstick (in house) 01/21/2024 00:00:00001/21/2024 00:00:00CBC Fingerstick (in house)[facility] 4095-21-60Y57:00:0011.92 - 15Revie[facility]StacyMer[facility] 01/21/2024 11:30:36 AM > , Provider reviewed results while patient in office.Francia Kumar 01/21/2024 1:30:14 PM > Coding CBC Fingerstick (in house) 01/21/2024 00:00: 00:00:00CBC Fingerstick (in house)[facility]m 5147-98-09Y04:00:008.515 - 50RevieweStacyMer[facility] 01/21/2024 11:30:36 AM > , Provider reviewed results while patient in office.Francia Kumar 01/21/2024 1:30:14 PM > Coding CBC Fingerstick (in house) 01/21/2024 00:00: 00:00:00CBC Fingerstick (in house)[facility] 7415-98-64F53:00:0011.43.5 - 10[facility] 01/21/2024 11:30:36 AM > , Provider reviewed results while patient in office.Francia Kumar 01/21/2024 1:30:14 PM > Coding CBC Fingerstick (in house) 01/21/2024 00:00: 00:00:00CBC Fingerstick (in house)[facility] 9971-24-31J54:00:40184891 - 400ReEnrikeK[facility] 01/27/2024 10:55:51 AM > Provider reviewed results while patient in office.Francia Kumar 01/27/2024 7:58:50 PM > Coding CBC Fingerstick (in house) 01/27/2024 00:00: 00:00:00CBC Fingerstick (in house)[facility] 9480-89-80Z60:00:0031.331 - 38Rev[facility]weGenoK[facility] 01/27/2024 10:55:51 AM > Provider reviewed results while patient in office.Francia Kumar 01/27/2024 7:58:50 PM > Coding CBC Fingerstick (in house) 01/27/2024 00:00: 00:00:00CBC Fingerstick (in house)[facility] [place] 7626-94-12Q80:00:0027.325 - 35RevieweGenoK[facility] 01/27/2024 10:55:51 AM > Provider reviewed results while patient in office.Francia Kumar 01/27/2024 7:58:50 PM > Coding CBC Fingerstick (in house) 01/27/2024 00:00: 00:00:00CBC Fingerstick (in house)[facility] 7946-09-21P01:00:0087.075 - 100RevieweGenoK[facility] 01/27/2024 10:55:51 AM > Provider reviewed results while patient in office.Francia Kumar 01/27/2024 7:58:50 PM > Coding CBC Fingerstick (in house) 01/27/2024 00:00: 00:00:00CBC Fingerstick (in house)[facility] 7663-44-11U88:00:0043.735 - 55Rev[facility]weGenoK[facility] 01/27/2024 10:55:51 AM > Provider reviewed results while patient in office.Francia Kumar 01/27/2024 7:58:50 PM > Coding CBC Fingerstick (in house) 01/27/2024 00:00: 00:00:00CBC Fingerstick (in house)hgb 0204-38-10T18:00:0013.711.5 - 16.5RevieweGenoK[facility] 01/27/2024 10:55:51 AM > Provider reviewed results while patient in office.Francia Kumar 01/27/2024 7:58:50 PM > Coding CBC Fingerstick (in house) 01/27/2024 00:00: 00:00:00CBC Fingerstick (in house)rbc 1190-42-95X58:00:005.033.5 - 5.5RevieweGenoK[facility] 01/27/2024 10:55:51 AM > Provider reviewed results while patient in office.Francia Kumar 01/27/2024 7:58:50 PM > Coding CBC Fingerstick (in house) 01/27/2024 00:00: 00:00:00CBC Fingerstick (in house)[facility] 0479-86-31I26:00:0073.035 - 80ReEnrikeK[facility]tering [facility] 01/27/2024 10:55:51 AM > Provider reviewed results while patient in office.Francia Kumar 01/27/2024 7:58:50 PM > Coding CBC Fingerstick (in house) 01/27/2024 00:00: 00:00:00CBC Fingerstick (in house)[facility] 7442-05-64S67:00:004.62 - 15ReEnrikeK[facility] 01/27/2024 10:55:51 AM > Provider reviewed results while patient in office.Francia Kumar 01/27/2024 7:58:50 PM > Coding CBC Fingerstick (in house) 01/27/2024 00:00: 00:00:00CBC Fingerstick (in house)lym 0577-75-36T43:00:0022.415 - 50RevieweGenoK[facility] 01/27/2024 10:55:51 AM > Provider reviewed results while patient in office.Francia Kumar 01/27/2024 7:58:50 PM > Coding CBC Fingerstick (in house) 01/27/2024 00:00:00001/27/2024 00:00:00CBC Fingerstick (in house)wbc 8045-09-25U04:00:007.93.5 - 10Re[facility]rikeK[facility] 01/27/2024 10:55:51 AM > Provider reviewed results while patient in office.Laila Kumarine 01/27/2024 7:58:50 PM > Coding CBC Fingerstick (in house) 01/27/2024 00:00:00105/27/2023 00:00:00Covid test (in house)Result: 3782-47-97H24:00:00NegReRoseanne Mosquera 03/27/2024 1:52:31 PM > , Provider reviewed results while patient in office. Coding Covid test (in house) 03/27/2024 00:00: 00:00:00P-Comprehensive Metabolic Panel (CMP)eGFR by Khrbnrzsml4365-57-64X99:00:0097mL/min/1.73m2>59 - mL/min/1.11z9JngyvrszRoseanne Oscar 03/30/2024 5:15:49 PM > Patient informed of normal results. Coding P-Comprehensive Metabolic Pa jarett (CMP) 03/27/2024 00:00: 00:00:00P-Comprehensive Metabolic Panel (CMP) Ageblil1272-67-26L01:00:006.5g/dL6.0-8.3 - g/dLRoseanne Lemos 03/30/2024 5:15:49 PM > Patient informed of normal results. Coding P-Comprehensive Metabolic Pa jarett (CMP) 03/27/2024 00:00: 00:00:00P-Comprehensive Metabolic Panel (CMP) Tkcepw7825-03-83O33:00:41217sgms/L015-307 - mmol/LRevRoseanne Mckay 03/30/2024 5:15:49 PM > Patient informed of normal results. Coding P-Comprehensive Metabolic Pa jarett (CMP) 03/27/2024 00:00: 00:00:00P-Comprehensive Metabolic Panel (CMP) Ntgmlwail3949-75-05G20:00:004.4mmol/L3.5-5.3 - mmol/LRevieLuisRoseanne L 03/30/2024 5:15:49 PM > Patient informed of normal results. Coding P-Comprehensive Metabolic Pa jarett (CMP) 03/27/2024 00:00: 00:00:00P-Comprehensive Metabolic Panel (CMP) Wftcsvr7545-06-98Y46:00:0094mg/dL65-99 - mg/dLReDemetriRoseanne L 03/30/2024 5:15:49 PM > Patient informed of normal results. Coding P-Comprehensive Metabolic Pa jarett (CMP) 03/27/2024 00:00: 00:00:00P-Comprehensive Metabolic Panel (CMP) Uzjyfwstkz5108-85-98H04:00:000.80mg/dL0.70-1.30 - mg/dLReDemetriRoseanne L 03/30/2024 5:15:49 PM > Patient informed of normal results. Coding P-Comprehensive Metabolic Pa jarett (CMP) 03/27/2024 00:00: 00:00:00P-Comprehensive Metabolic Panel (CMP)CO2 0931-13-85N19:00:0025mmol/L22-32 - mmol/LReviewedJocaitRoseanne 03/30/2024 5:15:49 PM > Patient informed of normal results. Coding P-Comprehensive Metabolic Pa jarett (CMP) 03/27/2024 00:00: 00:00:00P-Comprehensive Metabolic Panel (CMP) Uwxlrzom4192-05-85F23:00:18260omtw/L97-108 - mmol/LReviewedJollyRoseanne L 03/30/2024 5:15:49 PM > Patient informed of normal results. Coding P-Comprehensive Metabolic Pa jarett (CMP) 03/27/2024 00:00: 00:00:00P-Comprehensive Metabolic Panel (CMP) Xltxieq2491-91-82R05:00:009.1mg/dL8.6-10.4 - mg/dLReDemetriRoseanne L 03/30/2024 5:15:49 PM > Patient informed of normal results. Coding P-Comprehensive Metabolic Pa jarett (CMP) 03/27/2024 00:00: 00:00:00P-Comprehensive Metabolic Panel (CMP)BUN 8950-34-07P60:00:0013mg/dL8-23 - mg/dLReDemetriRoseanne 03/30/2024 5:15:49 PM > Patient informed of normal results. Coding P-Comprehensive Metabolic Pa jarett (CMP) 03/27/2024 00:00: 00:00:00P-Comprehensive Metabolic Panel (CMP) Bilirubin, Unxdm5853-37-23K50:00:000.4mg/dL<0.2-1.2 - mg/dLReDemetriRoseanne L 03/30/2024 5:15:49 PM > Patient informed of normal results. Coding P-Comprehensive Metabolic Pa jarett (CMP) 03/27/2024 00:00: 00:00:00P-Comprehensive Metabolic Panel (CMP)AST (SGOT)8587-08-24R06:00:0019IU/L<5-46 - IU/LReviewedJollsaminaRoseanne 03/30/2024 5:15:49 PM > Patient informed of normal results. Coding P-Comprehensive Metabolic Pa jarett (CMP) 03/27/2024 00:00: 00:00:00P-Comprehensive Metabolic Panel (CMP)ALT (SGPT)6450-99-60A02:00:0017IU/L<5-55 - IU/LReviewedJollsamina,Roseanne L 03/30/2024 5:15:49 PM > Patient informed of normal results. Coding P-Comprehensive Metabolic Pa jarett (CMP) 03/27/2024 00:00: 00:00:00P-Comprehensive Metabolic Panel (CMP) Alkaline Rfikczaknoo8947-71-78V28:00:90297VD/L40-129 - IU/LReviewedJollsaminaRoseanne L 03/30/2024 5:15:49 PM > Patient informed of normal results. Coding P-Comprehensive Metabolic Pa jarett (CMP) 03/27/2024 00:00:00105/27/2023 00:00:00P-Comprehensive Metabolic Panel (CMP) Onghsxn4560-05-45M64:00:004.0g/dL3.5-5.3 - g/dLReRoseanen Mosquera 03/30/2024 5:15:49 PM > Patient informed of normal results. Coding P-Comprehensive Metabolic Pa jarett (CMP) 03/27/2024 00:00:00105/27/2023 00:00:00P-Comprehensive Metabolic Panel (CMP)A/G Hzkce0011-32-17J91:00:001.61.1-2.5 -ReviewedRoseanne Chavez 03/30/2024 5:15:49 PM > Patient informed of normal results. Coding P-Comprehensive Metabolic Pa jarett (CMP) 03/27/2024 00:00: 00:00:00[facility]A97:00:18852121 - 400ReRoseanne Mosquera 03/27/2024 1:51:14 PM > , Provider reviewed results while patient in office. Coding CBC Venipuncture (in house) 03/27/2024 00:00: 00:00:00CBC Venipuncture (in house)[facility] 8969-63-02Q11:00:0032.231 - 38ReRsoeanne Mosquera 03/27/2024 1:51:14 PM > , Provider reviewed results while patient in office. Coding CBC Venipuncture (in house) 03/27/2024 00:00: 00:00:00CBC Venipuncture (in house)[facility] [place] 5324-97-70A87:00:0026.925 - 35ReRoseanne Mosquera 03/27/2024 1:51:14 PM > , Provider reviewed results while patient in office. Coding CBC Venipuncture (in house) 03/27/2024 00:00:00105/27/2023 00:00:00CBC Venipuncture (in house)mcv 2899-02-02A70:00:0083.575 - 100ReRoseanne Mosquera 03/27/2024 1:51:14 PM > , Provider reviewed results while patient in office. Coding CBC Venipuncture (in house) 03/27/2024 00:00:00105/27/2023 00:00:00CBC Venipuncture (in house)hct 0750-74-89H22:00:0039.335 - 55ReRoseanne Mosquera 03/27/2024 1:51:14 PM > , Provider reviewed results while patient in office. Coding CBC Venipuncture (in house) 03/27/2024 00:00:00105/27/2023 00:00:00CBC Venipuncture (in house)hgb 3221-35-01U61:00:0012.611.5 - 16.5ReRoseanne Mosquera 03/27/2024 1:51:14 PM > , Provider reviewed results while patient in office. Coding CBC Venipuncture (in house) 03/27/2024 00:00: 00:00:00CBC Venipuncture (in house)rbc 3070-98-59Y89:00:004.703.5 - 5.5ReRoseanne Mosquera 03/27/2024 1:51:14 PM > , Provider reviewed results while patient in office. Coding CBC Venipuncture (in house) 03/27/2024 00:00:00105/27/2023 00:00:00CBC Venipuncture (in house)gran 6715-90-37R24:00:0085.7%35 - 80ReRoseanne Mosquera 03/27/2024 1:51:14 PM > , Provider reviewed results while patient in office. Coding CBC Venipuncture (in house) 03/27/2024 00:00:00105/27/2023 00:00:00CBC Venipuncture (in house)mid 8343-99-17C01:00:003.9%2 - 15RevieweRoseanne Biswas 03/27/2024 1:51:14 PM > , Provider reviewed results while patient in office. Coding CBC Venipuncture (in house) 03/27/2024 00:00:00105/27/2023 00:00:00CBC Venipuncture (in house)lymph 9044-10-14W20:00:0010.4%15 - 50RevieweRoseanne Biswas 03/27/2024 1:51:14 PM > , Provider reviewed results while patient in office. Coding CBC Venipuncture (in house) 03/27/2024 00:00:00105/27/2023 00:00:00CBC Venipuncture (in house)wbc 3724-77-23H20:00:009.73.5 - 10ReRoseanne Mosquera 03/27/2024 1:51:14 PM > , Provider reviewed results while patient in office. Coding CBC Venipuncture (in house) 03/27/2024 00:00:00105/27/2023 00:00:00Influenza Screen (in house)results 4081-98-94L83:00:00NegReRoseanne Mosquera 03/27/2024 1:53:16 PM > , Provider reviewed results while patient in office. Coding Influenza Screen (in house) 03/27/2024 00:00: 00:00:45F-BTYUZL0473-20UNECST9334-47-78Q36:00:000.80ng/mL<4.00 - ng/mLRevieRoseanne Smith 07/20/2024 01:15:47 PM > Patient informed of normal results. Coding P-PSA 07/17/2024 00:00: 00:00:00P-Comprehensive Metabolic Panel (CMP)eGFR by Ggxtjkwjsx6423-77-84X37:00:0088mL/min/1.73m2>59 - mL/min/1.83h4MnkstrgyFunteRoseanne Lemos 07/20/2024 01:15:47 PM > Patient informed of normal results. Coding P-Comprehensive Metabolic Pa jarett (CMP) 07/17/2024 00:00: 00:00:00P-Comprehensive Metabolic Panel (CMP) Rahtmnt8242-97-68J80:00:006.7g/dL6.0-8.3 - g/dLReMirelaRoseanne haas 07/20/2024 01:15:47 PM > Patient informed of normal results. Coding P-Comprehensive Metabolic Pa jarett (CMP) 07/17/2024 00:00: 00:00:00P-Comprehensive Metabolic Panel (CMP) Zvzvmm8659-93-80Z39:00:38364mptn/B219-256 - mmol/LReviejaspaldKathyRoseanne 07/20/2024 01:15:47 PM > Patient informed of normal results. Coding P-Comprehensive Metabolic Pa jarett (CMP) 07/17/2024 00:00: 00:00:00P-Comprehensive Metabolic Panel (CMP) Zgwckuahg8446-79-09B93:00:004.0mmol/L3.5-5.3 - mmol/LRevWoodyRoseanne 07/20/2024 01:15:47 PM > Patient informed of normal results. Coding P-Comprehensive Metabolic Pa jarett (CMP) 07/17/2024 00:00: 00:00:00P-Comprehensive Metabolic Panel (CMP) Rpdgyey5498-04-52P39:00:53333ey/dL65-99 - mg/dLHROmayraRoseanne 07/20/2024 01:15:47 PM > Patient informed of normal results. Coding P-Comprehensive Metabolic Pa jarett (CMP) 07/17/2024 00:00: 00:00:00P-Comprehensive Metabolic Panel (CMP) Cmkhnaleuu9209-63-71A89:00:000.95mg/dL0.70-1.30 - mg/dLAmintaRoseanne Aakash 07/20/2024 01:15:47 PM > Patient informed of normal results. Coding P-Comprehensive Metabolic Pa jarett (CMP) 07/17/2024 00:00: 00:00:00P-Comprehensive Metabolic Panel (CMP)CO2 6851-91-45Z68:00:0026mmol/L22-32 - mmol/LReviewedJollRoseanne haas L 07/20/2024 01:15:47 PM > Patient informed of normal results. Coding P-Comprehensive Metabolic Pa jarett (CMP) 07/17/2024 00:00: 00:00:00P-Comprehensive Metabolic Panel (CMP) Qzcdtczn3949-57-83L71:00:35903cuut/L97-108 - mmol/LReviewedJollyRoseanne L 07/20/2024 01:15:47 PM > Patient informed of normal results. Coding P-Comprehensive Metabolic Pa jarett (CMP) 07/17/2024 00:00: 00:00:00P-Comprehensive Metabolic Panel (CMP) Njizelh7390-14-29A01:00:009.6mg/dL8.6-10.4 - mg/dLReviewedTeenayRoseanne L 07/20/2024 01:15:47 PM > Patient informed of normal results. Coding P-Comprehensive Metabolic Pa jarett (CMP) 07/17/2024 00:00: 00:00:00P-Comprehensive Metabolic Panel (CMP)BUN 9507-52-24H99:00:0013mg/dL8-23 - mg/dLRejareddKathyRoseanne L 07/20/2024 01:15:47 PM > Patient informed of normal results. Coding P-Comprehensive Metabolic Pa jarett (CMP) 07/17/2024 00:00: 00:00:00P-Comprehensive Metabolic Panel (CMP) Bilirubin, Hltpo5279-75-92S81:00:000.5mg/dL<0.2-1.2 - mg/dLRejareddKathyRoseanne L 07/20/2024 01:15:47 PM > Patient informed of normal results. Coding P-Comprehensive Metabolic Pa jarett (CMP) 07/17/2024 00:00: 00:00:00P-Comprehensive Metabolic Panel (CMP)AST (SGOT)0015-07-72S82:00:0019IU/L<5-46 - IU/LReviewedJollyRoseanne 07/20/2024 01:15:47 PM > Patient informed of normal results. Coding P-Comprehensive Metabolic Pa jarett (CMP) 07/17/2024 00:00: 00:00:00P-Comprehensive Metabolic Panel (CMP)ALT (SGPT)2088-94-11T08:00:0014IU/L<5-55 - IU/LReviewedJollyRoseanne 07/20/2024 01:15:47 PM > Patient informed of normal results. Coding P-Comprehensive Metabolic Pa jarett (CMP) 07/17/2024 00:00: 00:00:00P-Comprehensive Metabolic Panel (CMP) Alkaline Ugejtuddlyx2564-33-14N96:00:0098IU/L40-129 - IU/LRevieweTrueRoseanne 07/20/2024 01:15:47 PM > Patient informed of normal results. Coding P-Comprehensive Metabolic Pa jarett (CMP) 07/17/2024 00:00: 00:00:00P-Comprehensive Metabolic Panel (CMP) Ogtrsir7381-64-11Q37:00:004.3g/dL3.5-5.3 - g/dLReviewedTeenaRoseanne haas 07/20/2024 01:15:47 PM > Patient informed of normal results. Coding P-Comprehensive Metabolic Pa jarett (CMP) 07/17/2024 00:00: 00:00:00P-Comprehensive Metabolic Panel (CMP)A/G Bnatj5549-75-73Q97:00:001.81.1-2.5 -ReviewedJoyamilethRoseanne haas 07/20/2024 01:15:47 PM > Patient informed of normal results. Coding P-Comprehensive Metabolic Pa jarett (CMP) 07/17/2024 00:00: 00:00:00CBC Venipuncture (in house)[place] 4878-07-06B18:00:56719125 - 400RevieweRoseanne Biswas L 07/17/2024 12:06:13 PM > [place] 07/20/2024 01:15:47 PM > Patient informed of normal results. Coding CBC Venipuncture (in house) 07/17/2024 00:00: 00:00:00CBC Venipuncture (in house)[facility] 2977-46-30V51:00:0032.331 - 38ReNanette Mosquerae L 07/17/2024 12:06:13 PM > [place]MeganRoseanne L 07/20/2024 01:15:47 PM > Patient informed of normal results. Coding CBC Venipuncture (in house) 07/17/2024 00:00: 00:00:00CBC Venipuncture (in house)[facility] [place] 6747-15-78F86:00:0025.725 - 35ReNanette Mosquerae L 07/17/2024 12:06:13 PM > [place] ha[place] L 07/20/2024 01:15:47 PM > Patient informed of normal results. Coding CBC Venipuncture (in house) 07/17/2024 00:00: 00:00:00CBC Venipuncture (in house)[facility] 8032-10-16Y79:00:0079.675 - 100ReNanette Moqsuerae L 07/17/2024 12:06:13 PM > [place] haasnie L 07/20/2024 01:15:47 PM > Patient informed of normal results. Coding CBC Venipuncture (in house) 07/17/2024 00:00: 00:00:00CBC Venipuncture (in house)[facility] 4725D71:00:0037.635 - 55RevieweNanette Biswase L 07/17/2024 12:06:13 PM > [place] chavirae L 07/20/2024 01:15:47 PM > Patient informed of normal results. Coding CBC Venipuncture (in house) 07/17/2024 00:00: 00:00:00CBC Venipuncture (in house)hgb 8039-87-20A34:00:0012.111.5 - 16.5ReRoseanne Mosquera L 07/17/2024 12:06:13 PM > Roseanne Chavez L 07/20/2024 01:15:47 PM > Patient informed of normal results. Coding CBC Venipuncture (in house) 07/17/2024 00:00: 00:00:00CBC Venipuncture (in house)rbc 4385-86-29J77:00:004.723.5 - 5.5ReRoseanne Mosquera L 07/17/2024 12:06:13 PM > Roseanne Chavez L 07/20/2024 01:15:47 PM > Patient informed of normal results. Coding CBC Venipuncture (in house) 07/17/2024 00:00: 00:00:00CBC Venipuncture (in house)gran 0511-89-84Q78:00:0077.235 - 80ReRoseanne Mosquera L 07/17/2024 12:06:13 PM > Roseanne Chavez L 07/20/2024 01:15:47 PM > Patient informed of normal results. Coding CBC Venipuncture (in house) 07/17/2024 00:00: 00:00:00CBC Venipuncture (in house)mid 8965-62-16L32:00:004.82 - 15ReRoseanne Mosquera L 07/17/2024 12:06:13 PM > [place] chavirae L 07/20/2024 01:15:47 PM > Patient informed of normal results. Coding CBC Venipuncture (in house) 07/17/2024 00:00: 00:00:00CBC Venipuncture (in house)lymph 6424-65-86O04:00:0018.015 - 50ReRoseanne Mosquera 07/17/2024 12:06:13 PM > Roseanne Chavez 07/20/2024 01:15:47 PM > Patient informed of normal results. Coding CBC Venipuncture (in house) 07/17/2024 00:00: 00:00:00CBC Venipuncture (in house)wbc 9722-91-82H17:00:007.33.5 - 10ReRoseanne Mosquera 07/17/2024 12:06:13 PM > Roseanne Chavez 07/20/2024 01:15:47 PM > Patient informed of normal results. Coding CBC Venipuncture (in house) 07/17/2024 00:00:00
--- OUTSIDE RECORDS SUMMARY | 2024-12-09 07:21 | XMS_ITS | Clinical Summary ---
Author Organization [facility] Address [address] [place] [address] Care Team Providers Care House Mover Supervisor Name Role Phone Unavailable Primary Care Provider Unavailabl e Social History Tobacco Use Types Packs/Day Years Used Date Smoking Tobacco: Never Assessed Abuse Screen Answer Date Recorded Unsafe at Home or Work/School Not on file Feels Threatened by Someone? Not on file 01/2023 Does Anyone Keep You from Co ntacting Others or Doint Things Outside the Home? Not on file 02/05/2023 Physical Sign of Abuse Present Not on file 1 Housing Stability Answer Date Recorded Current Living Arrangements Not on file 01/27 Potentially Unsafe Housing Conditions Not on gregory e 02/05/2023 Family and Community Support Answer Martínez e Recorded Help with Day-to-Day Activities Not on file 02/05/2023 Lonely or Isolated Not on file 02/05/2023 Employment Answer Date Recorded Do you want help finding or keeping work or a max b? Not on file 02/05/2023 Disabilities Answer Date Recorded Concentrating, Remembering, or Making Decisions Difficulty Not on file 02/05/2023 Doing Errands Independently Difficulty Not on fi le 02/05/2023 Education Answer Date Recorded Help with school or training? Not on file Preferred Language Not on file 02/05/2023 Sex and Gender Information Value Date Recorded Sex Assigned at Not on file Legal Sex Male 1:39 PM EDT Gender Identity Not on file Sexual Orientation Not on file Last Filed Vital Signs Vital Sign Reading Time Taken Comments Blood Pressure 109/76 10/08/2012 9:46 AM EDT Pulse - - Temperature - - Respiratory Rate - - Oxygen Saturation - - Inhaled Oxygen Concentration - - Weight 71.7 kg (158 lb 0.1 oz) 10/08/2012 9:46 A M EDT Height 188 cm (6' 2 ) 10/08/2012 9:46 AM EDT Body Mass Index 20.29 10/08/2012 9:46 AM EDT Plan of Treatment Health Maintenance Due Date Last Done Comments TDAP/TD VACCINES (1 - Tdap) 1976 COLOGUARD 2002 COLON CANCER SCREENING 5 YEAR SIGMOIDOSCOPY 2002 COLONOSCOPY 2002 COLOR[address]AL CANCER SCREENING 2002 CT COLONOGRAPHY 2002 FECAL OCCULT BLOOD TEST 2002 FIT Testing (1 year) 2002 Pneumococcal Vaccine 50+ (1 of 1 - PCV) 2007 ZOSTER VACCINE (1 of 2) 2007 AAA SCREEN ONCE 2022 ANNUAL PHYSICAL 12/06/2023 HEPATITIS C SCREENING 12/06/2023 COVID-19 Vaccine ( season) 2023 INFLUENZA VACCINE 01/27/2025
--- OUTSIDE RECORDS SUMMARY | 2024-12-09 07:21 | XMS_ITS | Patient Health Record ---
Author Organization [facility] Address [address] [place] [id number] Care Team Providers Care Meter Tester Primary Name Role Phone Kofi Lynn Primary Care Provider Francia Kumar Unavailable [phone] Allergies No Known Allergies Results Component Value Reference Range Notes Glycohemoglobin A1c (in hous e) Reviewed date:11/20/2024 12:24:28 PM Interpretation:5.6 Performing Lab: Notes/Report: 5.6 glycohemoglobin 5.6 5 - 6.5 % P-Lipid Panel Reviewed date:11/20/2024 12:24:28 PM Interpretation:chol 204, non-hdl 150, ldl 132 Performing Lab: Notes/Report: Test performed by [facility] [address] [place] [address] , [address], [place] [address] Leonides Cordova MD, Nitrocell[employer] Maker CLIA: [id number] Cholesterol 204 <200 mg/dL Triglycerides 92 <150 [...] Results: 132 Units: mg/dL % Change: - Covid test (in house) Reviewed date:01/21/2024 01:30:03 PM Interpretation:neg Performing Lab: Notes/Report: neg Result: neg CBC Fingerstick (in house) Reviewed date:01/21/2024 01:30:16 PM Interpretation: Performing Lab: Notes/Report: wbc 11.4 3.5 - 10 lym 8.5 15 - 50 mid 11.9 2 - 15 gran 79.6 35 - 80 rbc 4.58 3.5 - 5.5 hgb 12.8 11.5 - 16.5 hct 39.4 35 - 55 mcv 86.0 75 - 100 mch 27.9 25 - 35 mchc 32.5 31 - 38 plat 164 100 - 400 P-PSA Reviewed date:07/20/2024 01:16:08 PM Interpretation:Normal Performing Lab: Notes/Report: Test performed by [email or web address], [facility] , [address], [place] [address] Leonides Cordova MD, Nitrocellulose Maker CLIA: [id number] PSA 0.80 <4.00 ng/mL Please note this is an ultrasensitive PSA assay with a lower limit of detection of 0.014 ng/mL. This test is performed by the Shann[employer] ECLIA methodology. Values obtained with different assay methods or kits cannot be directly compared. P-Comprehensive Metabolic Pa jarett (CMP) Reviewed date:07/20/2024 01:16:08 PM Interpretation:Normal Performing Lab: Notes/Report: Test performed by [email or web address], [address] , [address], [place] [address] Leonides Cordova MD, Nitrocellulose Maker CLIA: [id number] Sodium 138 135-145 mmol/L Potassium 4.0 3.5-5.3 mmol/L Chloride 104 97-108 mmol/L CO2 26 22-32 mmol/L Glucose 107 65-99 mg/dL BUN 13 8-23 mg/dL Creatinine 0.95 0.70-1.30 mg/dL Calcium 9.6 8.6-10.4 mg/dL eGFR by Creatinine 88 >59 mL/min/1.73m2 Protein 6.7 6.0-8.3 g/dL Albumin 4.3 3.5-5.3 g/dL Alkaline Phosphatase 98 40-129 IU/L ALT (SGPT) 14 <5-55 IU/L AST (SGOT) 19 <5-46 IU/L Bilirubin, Total 0.5 <0.2-1.2 mg/dL A/G Ratio 1.8 1.1-2.5 CBC Venipuncture (in house) Reviewed date:07/20/2024 01:16:08 PM Interpretation:Normal Performing Lab: Notes/Report: Normal wbc 7.3 3.5 - 10 lymph 18.0 15 - 50 mid 4.8 2 - 15 gran 77.2 35 - 80 rbc 4.72 3.5 - 5.5 hgb 12.1 11.5 - 16.5 hct 37.6 35 - 55 mcv 79.6 75 - 100 mch 25.7 25 - 35 mchc 32.3 31 - 38 platlet 292 100 - 400 CBC Fingerstick (in house) Reviewed date:01/27/2024 07:58:51 PM Interpretation: Performing Lab: Notes/Report: wbc 7.9 3.5 - 10 lym 22.4 15 - 50 mid 4.6 2 - 15 gran 73.0 35 - 80 rbc 5.03 3.5 - 5.5 hgb 13.7 11.5 - 16.5 hct 43.7 35 - 55 mcv 87.0 75 - 100 mch 27.3 25 - 35 mchc 31.3 31 - 38 plat 251 100 - 400 CXR Reviewed date:01/30/2024 02:14:17 PM Interpretation:Negative Performing Lab: Notes/Report: Negative P-Lipid Panel Reviewed date:12/03/2024 09:43:22 AM Interpretation:chol 206, non-hdl 153, ldl 131 Performing Lab: Notes/Report: FASTING Test performed by [facility] [address] [facility] , [address], [place] [address] Leonides Cordova MD, Nitrocellulose Maker CLIA: [id number] Cholesterol 206 <200 mg/dL Triglycerides 111 <150 [...] Results: 131 Units: mg/dL % Change: 0% Influenza Screen (in house) Reviewed date:03/30/2024 08:52:55 AM Interpretation: Performing Lab: Notes/Report: results Neg CBC Venipuncture (in house) Reviewed date:03/30/2024 08:52:56 AM Interpretation: Performing Lab: Notes/Report: wbc 9.7 3.5 - 10 lymph 10.4% 15 - 50 mid 3.9% 2 - 15 gran 85.7% 35 - 80 rbc 4.70 3.5 - 5.5 hgb 12.6 11.5 - 16.5 hct 39.3 35 - 55 mcv 83.5 75 - 100 mch 26.9 25 - 35 mchc 32.2 31 - 38 platlet 255 100 - 400 P-Comprehensive Metabolic Pa jarett (CMP) Reviewed date:03/30/2024 05:16:06 PM Interpretation:Normal Performing Lab: Notes/Report: Test performed by [email or web address] [employer] [facility] , [address], [place] [address] Leonides Cordova MD, Nitrocellulose Maker CLIA: [id number] Sodium 135 135-145 mmol/L Potassium 4.4 3.5-5.3 mmol/L Chloride 100 97-108 mmol/L CO2 25 22-32 mmol/L Glucose 94 65-99 mg/dL BUN 13 8-23 mg/dL Creatinine 0.80 0.70-1.30 mg/dL Calcium 9.1 8.6-10.4 mg/dL eGFR by Creatinine 97 >59 mL/min/1.73m2 Protein 6.5 6.0-8.3 g/dL Albumin 4.0 3.5-5.3 g/dL Alkaline Phosphatase 119 40-129 IU/L ALT (SGPT) 17 <5-55 IU/L AST (SGOT) 19 <5-46 IU/L Bilirubin, Total 0.4 <0.2-1.2 mg/dL A/G Ratio 1.6 1.1-2.5 Covid test (in house) Reviewed date:03/30/2024 08:52:55 AM Interpretation: Performing Lab: Notes/Report: Result: Neg CXR Reviewed date:03/30/2024 05:16:06 PM Interpretation:nothing acute Performing Lab: Notes/Report: nothing acute Medications Medication SIG (Take, Route, Frequency, Duration) Notes Start Date End Date Status Finasteride 5 MG 1 tablet Orally Once a day; Duration: 90 days 10/13/2024 Active Trelegy Ellipta 100-62.5-25 MCG/ACT 1 puff Inhalation Once a day 07/17/2024 Active Albuterol Sulfate HFA 108 (90 Base) MCG/ACT 2 puff as needed Inhalation qid; Duration: 14 days 01/21/2024 Active Flomax 0.4 MG 1 cap(s) orally once a day; Duration: 90 days Active Eliquis 5 mg TAKE ONE TABLET BY M OUTH TWICE DAILY DIRECTED; Duration: 30 days Active Aspirin 81 MG 1 tab(s) orally once a day Active Metoprolol Succinate 25 MG 1 capsule Ora lly Once a day Active Immunizations Vaccine Route Administration Date Status Comme nts xFluzone Intradermal (18-64yrs)-trivalent ID Intradermal 04/09/2012 Administered xFluzone Intradermal (18-64yrs)-trivalent ID Intradermal 02/26/2014 Administered xFluzone (6mos and older)-trivalent IM Intramuscular 02/11/2010 Administered xFluzone (6mos and older)-trivalent IM Intramuscular 03/16/2013 Administered xFlu shot-36 months and older IM Intramuscular 04/04/2007 Administered tuberculin (ppd) ID Intradermal 06/03/2013 Administered Tetanus Tdap-Adacel (over 7yrs) IM Intramuscular 06/04/2016 Administered Fluzone Quad (6months&older) IM Intramuscular 02/05/2015 Administered Fluzone Quad (6months&older) IM Intramuscular 04/04/2016 Administered Fluzone Quad (6months&older) IM Intramuscular 02/04/2017 Administered Fluzone Quad (6months&older) IM Intramuscular 02/18/2018 Administered Fluzone Quad (6months&older) IM Intramuscular 02/10/2020 Administered Fluzone High Dose (65yr and older) IM Intramuscular 03/06/2023 Administered COVID 19 Moderna Unknown 06/21/2020 Administered COVID 19 Moderna Unknown 07/19/2020 Administered COVID 19 Moderna Unknown 12/28/2020 Administered Problems Problem Type SNOMED Code ICD Code Onset Dates Problem Status W/U Status Risk Notes Problem Tobacco abuse (3103272397) Tobacco abuse (Z72.0) Active confirmed Problem Sinusitis (47263148) Sinusitis (J32.9) Active confirmed Problem Vitamin D deficiency (05682039) Vitamin D deficiency (E55.9) Active confirmed Problem Benign prostatic hyperplasia (453328514) BPH (benign prostatic hyperplasia) (N40.0) Active confirmed Problem Centrilobular emphysema (29026908) Centrilobular emphysema (J43.2) Active confirmed Problem History of heart valve repair with prosthesis (533194871799287) H/O mitral valve replacement (Z95.2) Active confirmed Problem Cellulitis of right upper limb (0443457581283354 7) Cellulitis of arm, right (L03.113) Active confirmed Problem Unilateral recurrent inguinal hernia without obstruction or gangrene (K40.91) Active confirmed Problem History of lung lobectomy (situation) (3190370350085791 3) 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) Active confirmed Problem History of heart valve repair with prosthesis (753742283049321) H/O prosthetic mitral valve (Z95.2) Active confirmed Vital Signs Heart Rate 76 /min 11/13/2024 Blood pressure diastolic 70 mm Hg 11/13/2024 Height 74 in 11/13/2024 Blood pressure systolic 102 mm Hg 11/13/2024 Weight 157.6 lbs 11/13/2024 BMI 20.23 kg/m2 11/13/2024 Encounters Encounter Location Date Provider Diagnosis [facility] [address] [facility] [address] [facility] [address] [place], [place] [id number] 01/21/2024 Francia Kumar Bronchitis J40 [facility] [address] [facility] [address] [place], [place] [id number] 01/27/2024 Francia Kumar Bronchitis J40 ; Sinusitis J32.9 and History of lobectomy of lung Z90.2 [facility] [address] [place], [place] [id number] 03/27/2024 Kofi Lynn Acute URI J06.9 and Bronchitis J40 [facility] [address] [facility] [address] [place], [place] [id number] 04/03/2024 Kofi Lynn Centrilobular emphys aure J43.2 ; Sinusitis J32.9 and H/O prosthetic mitral valve Z95.2 [facility] [address] [facility] [address] [place], [place] [id number] 07/17/2024 Kofi Lynn H/O mitral valve replacement Z95.2 ; Tobacco abuse Z72.0 ; History of lobectomy of lung Z90.2 ; Centrilobular emphysema J43.2 and BPH (benign prostatic hyperplasia) N40.0 [facility] [address] [facility] [address] [place], [place] [id number] 11/13/2024 J Bradley Lynn Centrilobular emphys aure J43.2 ; Tobacco abuse Z72.0 ; H/O mitral valve replacement Z95.2 ; History of lobectomy of lung Z90.2 ; Hyperglycemia R73.9 ; Lipid screening Z13.220 and BMI 20.0-20.9, adult Z68.20 [facility] [address] [facility] [address] [place], [place] [id number] 12/02/2024 Kofi Lynn Hyperlipidemia E78.5 [facility] [address] [facility] [address] [place], [place] [id number] 12/03/2024 Kofi Lynn [facility] [address] [facility] [address] [place] [id number] 06/10/2024 Kofi Lynn [facility] [address] [facility] [address] [place], [place] [id number] 10/13/2024 Kofi Lynn [facility] [address] [facility] [address] [place] [id number] 11/20/2024 Kofi Lynn [facility] [address] [facility] [address] [place], [place] [id number] 11/24/2024 Kofi Lynn Tobacco abuse Z72.0 ; History of lobectomy of lung Z90.2 and Encounter for screening for malignant neoplasm of respiratory organs Z12.2 Assessments Encounter Date Diagnosis (ICD Code) Assessment Notes Treatment Notes Treatment Clinical Notes Section Notes 07/17/2024 Tobacco abuse (ICD-10 - Z72.0) 07/17/2024 H/O mitral valve replacement (ICD-10 - Z95.2) 04/03/2024 Sinusitis (ICD-10 - J32.9) 04/03/2024 Centrilobular emphysema (ICD-10 - J43.2) Refill Azithromycin and take weekly x3 starting today. 03/27/2024 Bronchitis (ICD-10 - J40) 03/27/2024 Acute URI (ICD-10 - J06.9) 11/24/2024 Tobacco abuse (ICD-10 - Z72.0) 11/24/2024 History of lobectomy of lung (ICD-10 - Z90.2) 12/02/2024 Hyperlipidemia (ICD-10 - E78.5) 01/21/2024 Bronchitis (ICD-10 - J40) No Smoking, fluids, rest, supportive measures for fever/symptom relief 01/27/2024 Sinusitis (ICD-10 - J32.9) 01/27/2024 Bronchitis (ICD-10 - J40) will do CXR; encouraged not to smoke, fluids, rest, supportive measures for fever/symptom relief 11/13/2024 Tobacco abuse (ICD-10 - Z72.0) 11/13/2024 Centrilobular emphysema (ICD-10 - J43.2) 11/13/2024 H/O mitral valve replacement (ICD-10 - Z95.2) 01/27/2024 History of lobectomy of lung (ICD-10 - Z90.2) 11/24/2024 Encounter for screening for malignant neoplasm of respiratory organs (ICD-10 - Z12.2) 04/03/2024 H/O prosthetic mitral valve (ICD-10 - Z95.2) 07/17/2024 History of lobectomy of lung (ICD-10 - Z90.2) 07/17/2024 Centrilobular emphysema (ICD-10 - J43.2) 11/13/2024 History of lobectomy of lung (ICD-10 - Z90.2) 11/13/2024 Hyperglycemia (ICD-10 - R73.9) 07/17/2024 BPH (benign prostatic hyperplasia) (ICD-10 - N40.0) 11/13/2024 Lipid screening (ICD-10 - Z13.220) 11/13/2024 BMI 20.0-20.9, adult (ICD-10 - Z68.20) Plan Of Treatment Pending Test Test Name Order Date CT Scan : Chest, low dose 11/24/2024 Next Appt Details Provider Name:Kofi Merchant[facility] er, 05/14/2025 09:45:00 AM, [address], [address], [place], [place], [id number], Insurance Providers Payer Name Payer Address Payer Phone Subscriber Number Group Number Insured Name Patient Relationship to Insured Coverage Start Date Coverage End Date [employer] (MEDICARE) [address] [address] [place] [address] [id number] MARIA ALEJANDRA THOMAS Self - patient is the insured [facility] [address] [place], [place] [id number] MARIA ALEJANDRA THOMAS Self - patient is the insured Medications Administered Medication Instructions Date of Administration Dosage Notes rocephin one gram IM 05/25/2013 Medical (General) History Medical History History ICD Code anxiety mitral valve prolapse MRI 03/2017 WNL 60 pack year smoking history as of 2018 BPH COVID 19 Vaccine booster, Moderna, Dec 2020 Surgical History Surgery Date(Month/Year) hernia repair x 2 spontaneous pneumothorax x 2, partial ri ght lung resection mitral valve replacement (Medtronic Mosa ic tissue valve) 07/08/2013 Hospitalization History Reason Date(Month/Year) [facility] - see above
--- OUTSIDE RECORDS SUMMARY | 2024-12-09 07:22 | XMS_ITS | Clinical Summary ---
Author Organization [facility] Address [address] [place] [address] Care Team Providers Care Manager Body Name Role Phone Morgan Lynn MD Primary Care Provider [phone] Allergies No known active allergies Social History [...] on file Insurance [employer] MEDICARE Care Teams Manager Body Relationship Specialty Start Date End Date Morgan Lynn MD [address] [place] [id number] PCP - General 09/09/20
--- NOTE | 2024-12-09 07:24 | CT_ITS ---
FINAL REPORT CLINICAL HISTORY: SCREENING, TOBACCO ABUSE current smoker 1.5 ppd x 45 years COMPARISON: 06/01/2022 FINDINGS: CT CHEST LOW DOSE SCREENING HISTORY: Screening exam for lung cancer. 68-year-old male, current smoker, [id number]-ktiz history of smoking. DOSE: CTDI vol: 2.90 mGy, DLP: 110.98 mGy*cm TECHNIQUE: Axial CT without IV contrast administration using low dose protocol. This study was performed with techniques to keep radiation doses as low as reasonably achievable, (ALARA). Individualized dose reduction techniques using automated exposure control or adjustment of mA and/or kV according to the patient's size were employed. No acute lung disease is present. Advanced changes of emphysema are noted. No pulmonary lesions are seen suspicious for neoplasm. Numerous calcified granulomas are present. 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 No pleural or pericardial effusion is seen. No adenopathy or mass lesion is present. IMPRESSION: No suspicious pulmonary nodules are identified. LUNG RADS CATEGORY 1 RECOMMENDATION: 12 month LDCT follow up Reviewed, Interpreted and Dictated by Ruddy Em MD Transcribed by Susy Lazaro Authenticated and [facility]
[2024-12-09] MEDS: SODIUM CHLORIDE 0.9% 10ML SYR (RAD ONLY) 10 ML IV (08:09)
[2024-12-09] MEDS: IOPAMIDOL-370 (76%);100ML BOTTLE 100 ML IV (08:09)
[2024-12-09] MEDS: 0.9 % SODIUM CHLORIDE 50 ML VIAL IV (08:09)
--- NOTE | 2024-12-09 08:45 | CT_ITS ---
FINAL REPORT TECHNIQUE: Thin section axial CT with contrast with multiplanar reconstruction This study was performed with techniques to keep radiation doses as low as reasonably achievable, (ALARA). Individualized dose reduction techniques using automated exposure control or adjustment of mA and/or kV according to the patient's size were employed. CLINICAL HISTORY: Rule out aneursym COMPARISON: LDCT 06/01/2022 FINDINGS: Pulmonary vessels enhance in normal fashion. There is a fusiform aneurysm of the aortic sinus, measuring 44 mm in diameter on the coronal films. The mid ascending aorta is normal in appearance, measuring 32 mm in diameter. 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 The mid and distal thoracic aorta is normal. No pulmonary mass or infiltrate is present. Numerous calcified granulomas are noted. Advanced changes of emphysema are also identified. There is no significant pleural effusion. There is no significant pericardial effusion. No mediastinal or hilar adenopathy is present. IMPRESSION: 1. 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 The mid and distal thoracic aorta are unremarkable. 2. Advanced changes of emphysema. Reviewed, Interpreted and Dictated by Ruddy Em MD Transcribed by Susy Lazaro Authenticated and [facility]
== END 2024-12-09 23:59 | disposition home or self-care (01) ==
PROVIDERS: PCP Family Medicine; Visit Provider Family Medicine
DX: Q25.43 Congenital aneurysm of aorta (principal); I71.23 Aneurysm of the descending thoracic aorta, without rupture; J43.9 Emphysema, unspecified; R53.83 Other fatigue; R93.1 Abnormal findings on diagnostic imaging of heart and coronary circulation; Z95.2 Presence of prosthetic heart valve; Z12.2 Encounter for screening for malignant neoplasm of respiratory organs; Z90.2 Acquired absence of lung [part of]; Z72.0 Tobacco use
CPT/HCPCS: 71271; 71275; Q9967